=== PATIENT | female | born 1960 | race Caucasian/White ===

== ENCOUNTER 2023-07-11 10:27 | Day surgery (SDC) | payer MEDICARE, SELFPAY ==
[2023-07-11 11:41] VITALS: BP 127/78; PULSE 84; RESP 16; TEMP 36.1; O2SAT 98
--- NOTE | 2023-07-11 12:00 | W.ANESPRE ---
General Info Date of Service Date Performed: 07/11/23 Height: 5 ft 9 in Weight: 90.718 kg Body Mass Index (BMI): 29.5 Surgical Procedure: Operation Date: 07/11/23 12:55 Proposed Procedure Side Surgeon p Cataract Extraction with IOL Implant Left John Thomas MD Meds Allergies and Home Medications Allergies Allergy/AdvReac Type Severity Reaction Status Date / Time No Known Allergies Allergy Unverified 07/09/23 11:56 Home Medication Medication Instructions Recorded albuterol sulfate 90 mcg/actuation 1 - 2 inh inhalation DIRECTED 06/25/23 aerosol inhaler alprazolam 0.5 mg tablet 0.5 mg PO DAILY 06/25/23 famotidine 20 mg tablet 20 mg PO DAILY PRN 06/25/23 fluticasone furoate 100 1 ea inhalation BID 06/25/23 mcg-vilanterol 25 mcg/dose inhalation powder (Breo Ellipta) folic acid 1 mg tablet 1 mg PO BID 06/25/23 furosemide 20 mg tablet 20 mg PO DAILY 06/25/23 furosemide 40 mg tablet 40 mg PO DAILY 06/25/23 levalbuterol HCl 0.63 mg/3 mL 0.63 mg inhalation DIRECTED 06/25/23 solution for nebulization multivitamin 1 tab PO DAILY 06/25/23 ondansetron 4 mg disintegrating 4 mg PO Q8H PRN 06/25/23 tablet prednisone 20 mg tablet 40 mg PO DAILY 06/25/23 pregabalin 200 mg capsule 200 - 400 mg PO DIRECTED 06/25/23 spironolactone 100 mg tablet 100 mg PO DAILY 06/25/23 thiamine HCl (vitamin B1) 100 mg 100 mg PO DAILY 06/25/23 tablet Current Visit Medications: Current Medications Generic Name Dose Route Start Last Admin Trade Name Freq PRN Reason Stop Dose Admin Acetaminophen 1,000 mg 07/11/23 06:00 Acetaminophen 500 Mg Tab PO 08/10/23 05:59 Q4H PRN PRN Balanced Salt Solution 500 ml 07/11/23 06:00 Balanced Salt Soln.-Plus 500 Ml Bag OP 08/10/23 05:59 DIRECTED [facility] Miscellaneous Medication 0 ml 07/11/23 06:00 Prednisolone 1%, Moxifloxacin 0.5%, Nepafenac 0.1% 5ml Btl OS 08/10/23 05:59 DIRECTED [facility] Miscellaneous Medication 0 ml 07/11/23 06:00 Tropicam./Phenyleph. (1/2.5%) 5 Ml Btl OS 08/10/23 05:59 DIRECTED [facility] Tetracaine HCl 0 ml 07/11/23 06:00 Tetracaine 0.5% 4 Ml Btl OS 08/10/23 05:59 DIRECTED [facility] PFSH Active Problems Active Problems: Problem Status Onset Code Nuclear age-related cataract, right eye H25.11 Cortical age-related cataract, right eye H25.011 Medical History Medical History (Updated 07/09/23 @ 11:54 by Stevenson Singh) ADHD Allergic rhinitis Anxiety disorder Asthma Chronic pain due to injury Chronic post-traumatic stress disorder (PTSD) COPD (chronic obstructive pulmonary disease) 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 states medical marijuana Vital Signs and Lab Results Vital Signs Most Recent Vital Signs in EMR: Most Recent Vital Signs Temp Pulse Resp BP Pulse Ox 36.1 C L 84 16 127/78 98 07/11/23 11:41 07/11/23 11:41 07/11/23 11:41 07/11/23 11:41 07/11/23 11:41 Lab Results Blood Type / Crossmatch: No Data to Display Complete Blood Count: No Data to Display Complete Metabolic Panel: No Data to Display Liver Function Panel: No Data to Display Coagulation Panel: No Data to Display Cardiac Panel: No Data to Display Arterial Blood Gas: No Data to Display Venous Blood Gas: No Data to Display Pancreas Panel: No Data to Display Thyroid Panel: No Data to Display Infectious Disease: No Data to Display Blood Cultures: No Data to Display Toxicology Panel: No Data to Display Anesthesia Assessment and Plan Anesthesia History Personal History: No History of Anesthesia Complications Family History: No Family History of Anesthesia Complications Exercise Tolerance Exercise Tolerance: Metabolic Equivalents>4 Pertinent Negatives Pertinent Negatives: No Symptoms of GERD (controlled with meds) Cardiac & Pulmonary Exam Cardiac Exam: Normal S1/S2 Heart Sounds Pulmonary Exam: Clear Bilateral Breath Sounds Implantable Cardiac Device Does patient have a Pacemaker or an ICD?: No Airway Exam Known Difficult Airway: No Mallampati Class: 2 Mouth Opening: Normal (> 3cm) Thyromental Distance: Greater than 3 cm Neck Range of Motion: Full ROM Neck Circumference: Normal Teeth Condition: Generalized Poor Dentition ASA Classification ASA Score: ASA 2 Emergency Case?: No NPO Status NPO Status: NPO Clears >2 hours, Solids >8 hours Anesthesia Plan Resuscitation Status: Full Code Anesthesia Technique: MAC Anesthesia Airway Planned: Natural Airway Monitors Used: Standard Monitors Preoperative Comments:: Smokes Marijuana for medical reasons. Reports smoked this morning for anti anxiety reasons. Affect slightly off. Will not give MKO. Pt understands and feels will do ok.
[2023-07-11 12:12] VITALS: BMI 29.5
[2023-07-11] MEDS: Tropicam./Phenyleph. (1/2.5%) 5 ML BTL OS ×3 (12:17→12:33)
[2023-07-11] MEDS: Balanced Salt Soln.-PLUS 500 ML BAG OP (13:07)
[2023-07-11] MEDS: Tetracaine 0.5% 4 ML BTL OS (13:08)
[2023-07-11] MEDS: Lidocaine 1% Pres-Free 5 ML VIAL (13:09)
[2023-07-11] MEDS: Phenylephrine/Lidocaine (15/10) MG/ML 1 ML VIAL (13:10)
[2023-07-11] MEDS: Povidone-Iodine Ophth 30 ML BTL (13:10)
[2023-07-11] MEDS: Duovisc Viscoelastic System EACH 1 EACH (13:11)
[2023-07-11 13:29] VITALS: BP 115/71; PULSE 78; RESP 16; TEMP 36.4; O2SAT 99
--- NOTE | 2023-07-11 13:29 | W.PM.DSUDISC ---
Date of service: 07/11/23 Time of Service: 13:29 Discharge Plan Disposition Patient Disposition: Home Discharge Details Attending Provider: John Thomas Primary Care Provider: Michael Rainey [place] Meds and New Rx's Prescriptions: No Action furosemide 40 mg Tablet 40 mg PO DAILY levalbuterol HCl 0.63 mg/3 mL Solution For Nebulization 0.63 mg INHALATION DIRECTED prednisone 20 mg Tablet 40 mg PO DAILY spironolactone 100 mg Tablet 100 mg PO DAILY thiamine HCl (vitamin B1) 100 mg Tablet 100 mg PO DAILY alprazolam 0.5 mg Tablet 0.5 mg PO DAILY famotidine 20 mg Tablet 20 mg PO DAILY PRN folic acid 1 mg Tablet 1 mg PO BID furosemide 20 mg Tablet 20 mg PO DAILY albuterol sulfate 90 mcg/actuation Hfa Aerosol Inhaler 1 - 2 inh INHALATION DIRECTED ondansetron 4 mg Tablet,Disintegrating 4 mg PO Q8H PRN pregabalin 200 mg Capsule 200 - 400 mg PO DIRECTED fluticasone furoate-vilanterol [Breo Ellipta] 100-25 mcg/dose Blister With Device 1 ea INHALATION BID multivitamin Tablet 1 tab PO DAILY Discharge Instructions Stand Alone Forms: Post-op Topical Cataract, Flaquito Cruz (DSU) Discharge Orders Discharge Orders: Discharge Order (Routine); Ordered 07/11/23 Ordered By: John Thomas DS: Diagnosis Discharge Diagnosis (1) Nuclear age-related cataract, right eye: Status: Resolved (2) Cortical age-related cataract, right eye: Status: Resolved
--- NOTE | 2023-07-11 13:30 | ROE_ITS ---
Date of service: 07/11/23 Time of Service: 13:30 Operative Note Operative Note DATE OF PROCEDURE: 07/11/23 PRE-OP DIAGNOSIS: Nuclear/cortical cataract, right eye POST-OP DIAGNOSIS: same PROCEDURE: Cataract extraction using phacoemulsification with intraocular lens implant, right eye SURGEON: John Thomas ANESTHESIA TYPE: Local By Surgeon and MAC Refer to Anesthesia Record ESTIMATED BLOOD LOSS: 0 PATHOLOGY: none sent COMPLICATIONS: None Patient was transported to: same day Patient's condition: stable Implants: Jermain Clareon [id number] Indications: Progressive decreased vision due to cataract, right eye Procedure Description: CATARACT SURGERY OPERATIVE REPORT PREOPERATIVE DIAGNOSIS: Nuclear/cortical cataract, right eye POSTOPERATIVE DIAGNOSIS: Same OPERATION: Cataract extraction using phacoemulsification with posterior chamber intraocular lens implant, right eye. IOL: IOL Associate Chief Nurse/Model: Jermain Clareon [id number] IOL Power: + 24.5 diopters IOL Serial Number: [id number] Optic Diameter: 6.0mm Haptic/Overall Diameter: 13.0mm PHACO INFO: JermainMeddleurion Vision System with OZil and Active Fluidics Cumulative Dispersed Energy (CDE): 6.00 seconds SURGEON: John Thomas MD, CYDNEY ANESTHESIA: Monitored Anesthesia Care (MAC), with local sub-tenon's anesthetic infiltration COMPLICATIONS: None SPECIMENS: None INDICATIONS FOR PROCEDURE: The patient is a 63-year-old lady with history of diminished visual acuity in her right eye secondary to the development of nuclear/cortical cataract. She is significantly symptomatic that she desires cataract surgery and attempt to improve and maximize her vision. See office notes for detailed information. PROCEDURE: The correct surgical eye was identified and marked as the right eye and the pupil was dilated in the preoperative area using mydriatics and cycloplegics. The dilated pupil size was 5.0 mm. The patient elected to proceed without oral sedation. The patient was brought to the operating room where cardiopulmonary monitoring was instituted and surgical time-out was performed, confirming the correct operative eye and IOL power. Topical anesthesia was administered and ophthalmic povidone-iodine 5% was instilled into the conjunctival fornices. The shanita-ocular area was prepped with Betadine 10% solution and draped in the usual sterile fashion for intraocular surgery, including an aperture drape. A Tegaderm transparent film dressing was cut in half and used to cover the lashes and lid margins. Care was taken to sequester the lashes and lid margins under the Tegaderm dressing. A lid speculum was placed between the lids of the operative eye and the Constantine-Trell operating microscope was maneuvered into position. Carloz scissors were then used to make a conjunctival buttonhole approximately 6mm posterior to the limbus in the inferonasal quadrant. Blunt dissection was carried out to expose bare sclera, and a blunt-tipped sub-tenon?s anesthesia cannula was introduced and passed posteriorly along the globe where non- preserved plain lidocaine was injected into posterior sub-Tenon?s space. A sideport knife was used to make a paracentesis port. Intraocular phenylephrine/lidocaine was injected into the anterior chamber. The anterior chamber was then filled with viscoelastic. A keratome knife was used to construct a two--plane clear corneal tunnel extending 2.0mm into clear cornea. A flap was raised on the anterior capsule and capsulorhexis forceps were used to complete a continuous curvilinear capsulorhexis of 5.0 mm. Balanced salt solution was then used to perform cortical cleaving hydrodissect ion and nuclear hydrodelineation until the lens could be freely rotated within the capsular bag. The lens nucleus was then disassembled and removed within the capsular bag and iris plane using phacoemulsification. Residual cortical material was removed using the I/A handpiece. The posterior capsule was carefully polished to remove as much residual lens epithelial cells as safely possible. The capsular bag was then inflated and the anterior chamber deepened with cohesive viscoelastic. The lens implant described above was inserted into the capsular bag using the Jermain Autonome Injector. A Kuglen hook was used to dial the IOL into position. Residual viscoelastic was then removed first from posterior to the IOL, then from the anterior chamber using the I/A handpiece. The lens implant was noted to center nicely within the capsular bag. The incisions were stromally hydrated, and the anterior chamber was reformed using BSS. Then 0.5cc of moxifloxacin 1.0mg/ml were injected into the capsular bag and anterior chamber. The incisions were checked with a Weck spear and found to be secure. Several drops of ophthalmic povidone-iodine 5% were then applied to the eye followed by two drops of Imprimis combination prednisolone/moxifloxacin/nepafenac solution. The apes were removed and a clear plastic protective eye shield was placed over the eye. The patient was then returned to [facility] Day Surgery in stable condition.
--- NOTE | 2023-07-11 14:07 | W.ANESPOSTOP ---
Postoperative Evaluation Date, Time and Location Date Performed: 07/11/23 Time Performed: 13:30 Patient Location: Day Surgery Unit Vital Signs Most Recent Imported Vital Signs: Most Recent Vital Signs Temp Pulse Resp BP Pulse Ox 36.4 C L 78 16 115/71 99 07/11/23 13:29 07/11/23 13:29 07/11/23 13:29 07/11/23 13:29 07/11/23 13:29 Pain Score Most Recent Pain Score: Most Recent Pain Score Pain Level 0 07/11/23 13:29 Assessment Mental Status: Awake (Alert & Oriented to Patient Baseline) Airway and Respiratory Function: Patent airway with normal (patient baseline) respiratory exam Cardiovascular Function: Hemodynamically Stable Hydration Status: Adequately Hydrated Nausea & Vomiting: No Nausea or Vomiting Pain: Pt. Denies Any Pain Peripheral Nerve Block: Patient did not receive a nerve block
== END 2023-07-11 15:51 | disposition home or self-care (01) ==
PROVIDERS: PCP Internal Medicine; Visit Provider Ophthalmology
PROC: (CPT 66984; principal; 2023-07-11 12:45)
DX: H25.11 Age-related nuclear cataract, right eye (principal); H25.011 Cortical age-related cataract, right eye
CPT/HCPCS: 66984; V2632

== ENCOUNTER 2025-09-12 03:15 | Outpatient (RCR) | payer MEDICARE, MEDICAID, SELFPAY ==
[2025-09-05 08:00] LABS: Abs Immature Grans 0.01 10^3/uL (0.0-0.06); HCT 33.4 % (36.0-46.0); HGB 11.0 g/dL (11.2-15.7); Immature Grans % 0.2 %; MCH 27.4 pg (27.0-33.0); MCHC 32.9 % (32.0-36.0); MCV 83 fL (80-95); MPV 9.9 fL (8.0-11.0); Platelet Count 127 10^3/uL (130-400); RBC 4.01 10^6/uL (3.93-5.22); RDW 13.3 % (11.7-14.6); RDW-SD 40.7 fL; WBC 5.45 10^3/uL (4.4-10.8)
[2025-09-05 08:18] LABS: ALT 14 U/L (10-49); AST 21 U/L (<34); Albumin 4.1 g/dL (3.4-5.0); Alkaline Phosphatase 120 U/L (46-116); Anion Gap 8.5 mmol/L (3-11); BUN 14 mg/dL (9-23); Bilirubin, Total 0.50 mg/dL (0.2-1.2); CO2 26.5 mmol/L (20.0-31.0); Calcium 9.1 mg/dL (8.3-10.6); Chloride 106 mmol/L (98-107); Glucose 91 mg/dL (74-106); Magnesium 1.6 mg/dL (1.6-2.6); Potassium 3.8 mmol/L (3.5-5.1); Sodium 141 mmol/L (136-145); Total Protein 7.2 g/dL (5.7-8.2)
[2025-09-05] MEDS: Normal Saline Flush 10 ML SYR IVP (08:33)
[2025-09-12] MEDS: Normal Saline Flush 10 ML SYR IVP (09:06)
[2025-09-12 09:15] LABS: Abs Immature Grans 0.03 10^3/uL (0.0-0.06); HCT 33.6 % (36.0-46.0); HGB 11.5 g/dL (11.2-15.7); Immature Grans % 0.4 %; MCH 27.4 pg (27.0-33.0); MCHC 34.2 % (32.0-36.0); MCV 80 fL (80-95); MPV 9.9 fL (8.0-11.0); Platelet Count 131 10^3/uL (130-400); RBC 4.20 10^6/uL (3.93-5.22); RDW 13.5 % (11.7-14.6); RDW-SD 39.1 fL; WBC 7.30 10^3/uL (4.4-10.8)
[2025-09-12 09:40] LABS: ALT 25 U/L (10-49); AST 19 U/L (<34); Albumin 4.3 g/dL (3.4-5.0); Alkaline Phosphatase 128 U/L (46-116); Anion Gap 6.3 mmol/L (3-11); BUN 36 mg/dL (9-23); Bilirubin, Total 0.60 mg/dL (0.2-1.2); CO2 23.7 mmol/L (20.0-31.0); Calcium 8.7 mg/dL (8.3-10.6); Chloride 105 mmol/L (98-107); Glucose 92 mg/dL (74-106); Magnesium 1.8 mg/dL (1.6-2.6); Potassium 3.3 mmol/L (3.5-5.1); Sodium 135 mmol/L (136-145); Total Protein 7.2 g/dL (5.7-8.2)
== END 2025-09-18 23:59 | disposition home or self-care (01) ==
LOC: INF 03:15
PROVIDERS: PCP Internal Medicine; Visit Provider Internal Medicine Hematology
DX: C79.89 Secondary malignant neoplasm of other specified sites (principal); Z45.2 Encounter for adjustment and management of vascular access device
CPT/HCPCS: 36591; 80053; 83735; 85025

== ENCOUNTER 2025-09-27 14:03 | Outpatient (REF) | payer MEDICARE, MEDICAID, SELFPAY ==
[2025-09-27 14:13] LABS: Abs Immature Grans 0.04 10^3/uL (0.0-0.06); HCT 31.1 % (36.0-46.0); HGB 10.6 g/dL (11.2-15.7); Immature Grans % 0.5 %; MCH 27.5 pg (27.0-33.0); MCHC 34.1 % (32.0-36.0); MCV 81 fL (80-95); MPV 10.4 fL (8.0-11.0); Platelet Count 150 10^3/uL (130-400); RBC 3.86 10^6/uL (3.93-5.22); RDW 13.8 % (11.7-14.6); RDW-SD 39.8 fL; WBC 8.01 10^3/uL (4.4-10.8)
[2025-09-27 14:37] LABS: Magnesium 1.8 mg/dL (1.6-2.6)
[2025-09-27 14:39] LABS: ALT 26 U/L (10-49); AST 22 U/L (<34); Albumin 4.3 g/dL (3.2-5.0); Alkaline Phosphatase 117 U/L (46-116); Anion Gap 12.1 mmol/L (3-11); BUN 37 mg/dL (9-23); Bilirubin, Total 0.7 mg/dL (0.2-1.2); CO2 24.9 mmol/L (20.0-31.0); Calcium 9.4 mg/dL (8.3-10.6); Chloride 100 mmol/L (98-107); Glucose 122 mg/dL (74-106); Potassium 3.8 mmol/L (3.5-5.1); Sodium 137 mmol/L (136-145); Total Protein 7.3 g/dL (5.7-8.2)
== END 2025-09-27 14:04 | disposition home or self-care (01) ==
LOC: LBN 14:03
PROVIDERS: PCP Internal Medicine; Visit Provider Internal Medicine Hematology
DX: C79.89 Secondary malignant neoplasm of other specified sites (principal)
CPT/HCPCS: 80053; 83735; 85025

== ENCOUNTER 2025-09-28 15:57 | Inpatient (IN) | payer MEDICARE, MEDICAID, SELFPAY ==
[2025-09-28] VITALS (61 sets, daily range): BP systolic 132–174; BP diastolic 53–88; PULSE 110–147; RESP 16–33; TEMP 36.3–37.8; O2SAT 95–100
--- NOTE | 2025-09-28 16:00 | DI.RAD_ITS ---
Exam(s) XR PORTABLE CHEST AP EXAM: XR PORTABLE CHEST AP CLINICAL HISTORY: sob TECHNIQUE: 2D digital imaging was performed. COMPARISON: No exams were available for comparison FINDINGS: Overlying monitoring leads. Port over right chest with tip at cavoatrial junction. LUNGS: Clear. No pleural abnormality seen. HEART: Normal size. AORTA: Normal diameter. BONES: Unremarkable for age. Soft tissues: Unremarkable. IMPRESSION: No acute findings. DATA REPOSITORY: RADIATION DOSE DELIVERED:
[2025-09-28 16:35] LABS: Abs Immature Grans 0.01 10^3/uL (0.0-0.06); BE (Venous) 2 mmol/L (-2-3); HCO3 (Venous) 26 mmol/L (23-28); HCT 28.4 % (36.0-46.0); HGB 9.7 g/dL (11.2-15.7); Immature Grans % 0.2 %; MCH 27.6 pg (27.0-33.0); MCHC 34.2 % (32.0-36.0); MCV 81 fL (80-95); MPV 8.8 fL (8.0-11.0); O2 Sat (Venous) 82 %; Platelet Count 120 10^3/uL (130-400); RBC 3.52 10^6/uL (3.93-5.22); RDW 14.0 % (11.7-14.6); RDW-SD 40.2 fL; TCO2 (Venous) 24 mmol/L (24-29); WBC 6.07 10^3/uL (4.4-10.8); pCO2 (Venous) 37 mmHg (41-51); pO2 (Venous) 43 mmHg
--- NOTE | 2025-09-28 16:38 | W.ED.GENAD ---
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, Normocytic anemia, Acute dehydration, Elevated BUN, DNI (do not intubate) Primary Care Provider: Michael Rainey ED Provider: Michael Molina Home Meds and New Rx's Prescriptions: No Action oxycodone 5 mg tablet 5 mg feeding tube Q6H PRN Patient Comments: TAKE 1 TABLET BY MOUTH EVERY 6 HOURS NEEDED FOR PAIN prochlorperazine maleate 10 mg tablet 10 mg feeding tube Q6H PRN Patient Comments: TAKE 1 TABLET BY MOUTH EVERY 6 HOURS NEEDED FOR NAUSEA Certavite-Antioxidant 18-400 mg-mcg tablet 1 tab PO DAILY Patient Comments: TAKE 1 TABLET BY MOUTH EVERY DAY benzonatate 100 mg capsule 100 mg PO TID PRN Patient Comments: TAKE 1 CAPSULE BY MOUTH THREE TIMES DAILY NEEDED FOR COUGH ibuprofen 800 mg tablet 800 mg feeding tube Q8H PRN Patient Comments: TAKE 1 TABLET BY MOUTH EVERY 8 HOURS NEEDED FOR PAIN estradiol 0.1 mg/24 hr patch weekly 1 patch transdermal .weekly Patient Comments: APPLY 1 PATCH ON THE SKIN EVERY WEEK levalbuterol HCl 0.63 mg/3 mL Solution For Nebulization 0.63 mg INHALATION DIRECTED alprazolam 0.5 mg Tablet 0.5 mg PO DAILY famotidine 20 mg Tablet 20 mg PO DAILY PRN albuterol sulfate 90 mcg/actuation Hfa Aerosol Inhaler 1 - 2 inh INHALATION DIRECTED fluticasone furoate-vilanterol [Breo Ellipta] 100-25 mcg/dose Blister With Device 1 ea INHALATION BID multivitamin Tablet 1 tab PO DAILY HPI General Date/Time Provider Initiated Documentation: 09/28/25 16:01. HPI Narrative: MDM This is a tachycardic afebrile 65-year-old patient with metastatic squamous cell carcinoma of head and neck and decreased oral intake with goals to avoid escalation of care for which patient will benefit from local hospitalization. Patient had recently been diagnosed with mucositis. No active oral bleeding to suggest benefit from nebulized TXA at this point. I have a type and screen on file. Patient will receive empiric coverage for sepsis with cefepime and vancomycin. When asked about intubation patient shook her head and declined. I was able to assess patient's orientation as patient was able to write her name, the date, and furthermore patient has had prior DNI DNR orders in the [facility] EMR the place, back in July. Oncology notes that there is consideration of engaging palliative care. I was able to speak with the patient's partner named Charis Goodman at [phone]. She agreed that the patient would not want escalation of care nor intubation nor tertiary care transfer nor central venous catheter. Patient has good access with a right chest wall port in place. I also spoke to the patient's mother Allyn Otero at [phone] and the patient's daughter Roseann Otero at [phone] letting them both know that the patient was going to be admitted to the hospital. Patient is comfortable at the moment. She is handling her secretions. CBC shows slightly worsened normocytic anemia with new thrombocytopenia. No leukocytosis. Normal reassuring magnesium. Initial reassuring troponin. Comprehensive metabolic panel showing CKD from last month but improved today with creatinine of 1.13. No LFT abnormalities. Elevated BUN. Patient has quite dry mucous membranes. Her delta troponin was flat. Given reported diarrhea I ordered a C. difficile. She has a normal reassuring lactate. I considered PE however the patient is not endorsing shortness of breath and is not hypoxic. I did not feel that the patient would benefit from anticoagulation in the event that she did have a PE. As result did not perform a CT angiogram of her chest. 8:09 PM Patient's tachycardia is improving. She still appears quite dry so we will order her an additional 500 cc of fluid for a total of 2 L. She tells me that she is not on any beta-blockade. She tells me that she is not having any pain at the moment. She does take oxycodone 5 mg per her feeding tube Q6. In the event that there is a component of pain will treat with low-dose morphine. I was in touch with Dr. Enciso who graciously agreed to accept patient for hospitalization. I signed patient out to Dr. Enciso at bedside. I reviewed this patient's CODE STATUS in the [facility] EMR. There are 2 CODE STATUS entries both from July 2025. First on August 03 there is a DNI DNR order placed by a PA named Shu Johnson on August 03. It appears that Shu Johnson is a PA with the radiology department. On August 02 patient had had G-tube placed and venous access placed. Patient was intubated on October 02 and anesthesia noted challenging intubation due to friable mass. There is a note on October 02 from eLila Johnson. It is a brief H&P. There is subsequently a full code order placed on August 18 by Blas Eugene a resident in the ENT department. Patient was at [facility] for extraction of multiple teeth on 08/17/2025. 9:18 PM Patient developed worsening tachycardic. Rate climbed up into the 130s. Her blood pressure also increased into the 160s. She does not have outpatient alprazolam on her medication list. I offered her anxiolysis which she declined. She had no bleeding from her oral mucosa on reexamination. She was handling her secretions and in no acute distress. HPI Nonverbal 65-year-old female with advanced squamous cell head and neck cancer arriving via EMS with reported oral bleeding. Patient is nonparticipatory in history gathering. Patient reports she would not want intubation or CPR. She would not want transfer to tertiary care. She squamous cell carcinoma of the right tonsil, and the base of the tongue. She has a history of lung disease asthma COPD cirrhosis and a history of hepatic encephalopathy. She had previously been maintained on cisplatin. On September 19 she was diagnosed with progressive mucositis grade 3 over the soft palate. She received cisplatin on 09 19. She was seen in oncology on 09/21 and noted that she had no solids by mouth limited by dysphagia and pain. She has been drinking liquids. She has been using her G-tube 3 times a day. She reportedly has had depression. She was down to 80 kg from 85 kg. She met with social work on 09/22. At that point she was questioning if she should continue with treatment. She reported feeling that she had no dignity left in her life. Patient was agreeable at that point in time to palliative care referral. She also brought up Medicaid aid in dying. Exam General: Cachectic [id number] in no acute distress speaking. Nonverbal. Head: Normocephalic, atraumatic. Eye: Extraocular eye movements intact. No conjunctival injection. Mild just scleral icterus. Ear, nose, mouth, throat: handling secretions normally. Posterior oropharynx with significant dried blood. No active bleeding. Quite dry mucous membranes. Neck: Trachea midline. Cardiovascular: Well-perfused distal extremities. Rapid regular rate. Chest wall: Chest wall port in place. Respiratory: Nonlabored respiration. Clear lungs bilaterally. Gastrointestinal: Nondistended abdomen. Soft nontender. 16 [place] left upper quadrant feeding tube. Musculoskeletal: No edema. Moving all 4 extremities spontaneously. Skin: Normal for age and race, grossly normal temperature and turgor. No acute rash. Neurologic: Alert to person place time and events. Neurological status ascertained by having patient write responses on a piece of paper. Related Data Home Medications ?Medication ?Instructions ?Recorded ?Confirmed albuterol sulfate 90 mcg/actuation 1 - 2 inh inhalation DIRECTED 06/25/23 09/28/25 aerosol inhaler alprazolam 0.5 mg tablet 0.5 mg PO DAILY 06/25/23 09/28/25 famotidine 20 mg tablet 20 mg PO DAILY PRN 06/25/23 09/28/25 fluticasone furoate 100 1 ea inhalation BID 06/25/23 09/28/25 mcg-vilanterol 25 mcg/dose inhalation powder (Breo Ellipta) levalbuterol HCl 0.63 mg/3 mL 0.63 mg inhalation DIRECTED 06/25/23 09/28/25 solution for nebulization multivitamin 1 tab PO DAILY 06/25/23 09/28/25 benzonatate 100 mg capsule 100 mg PO TID PRN 09/28/25 09/28/25 estradiol 0.1 mg/24 hr weekly 1 patch transdermal .weekly 09/28/25 09/28/25 transdermal patch ibuprofen 800 mg tablet 800 mg feeding tube Q8H PRN 09/28/25 09/28/25 multivitamin-ferrous 1 tab PO DAILY 09/28/25 09/28/25 fumarate-folic acid 18 mg-400 mcg tablet (Certavite-Antioxidant) oxycodone 5 mg tablet 5 mg feeding tube Q6H PRN 09/28/25 09/28/25 prochlorperazine maleate 10 mg 10 mg feeding tube Q6H PRN 09/28/25 09/28/25 tablet Allergies Allergy/AdvReac Type Severity Reaction Status Date / Time No Known Allergies Allergy Verified 09/28/25 17:08 General Stated Complaint: AMS/LOC JOVANA: 2 Course Vital Signs Vital signs: Vital Signs Temperature 36.3 C L 09/28/25 16:03 Pulse 128 H 09/28/25 16:03 Respiratory Rate 31 H 09/28/25 16:03 Blood Pressure 149/81 H 09/28/25 16:03 Pulse Oximetry 98 09/28/25 16:03 Temperature 36.3 C L 09/28/25 16:03 Temperature Source Tympanic 09/28/25 16:03 Pulse 128 H 09/28/25 16:03 Respiratory Rate 26 H 09/28/25 16:33 Respiratory Effort Normal, Non-Labored 09/28/25 16:33 Respiratory Depth Normal 09/28/25 16:33 Respiratory Pattern Normal 09/28/25 16:33 Blood Pressure 149/81 H 09/28/25 16:03 Blood Pressure Position Sitting 09/28/25 16:03 Pulse Oximetry 98 09/28/25 16:03 Oxygen Delivery Method Room Air 09/28/25 16:03 Oxygen Flow Rate 0 09/28/25 16:03 Lab/Test Results Lab/Test Results: Laboratory Tests Range/Units 09/28/25 16:23 WBC (4.4-10.8) 10^3/uL 6.07 RBC (3.93-5.22) 10^6/uL 3.52 L Hgb (11.2-15.7) g/dL 9.7 L Hct (36.0-46.0) % 28.4 L MCV (80-95) fL 81 MCH (27.0-33.0) pg 27.6 MCHC (32.0-36.0) % 34.2 RDW (11.7-14.6) % 14.0 Plt Count (130-400) 10^3/uL 120 L MPV (8.0-11.0) fL 8.8 Immature Gran % % 0.2 Neutrophils % % 72.5 Lymphocytes % % 12.0 Monocytes % % 14.5 Eosinophils % % 0.3 Basophils % % 0.5 Nucleated RBC % (0.0-0.3) % 0.0 Absolute Neutrophils (1.2-6.7) 10^3/uL 4.40 Absolute Lymphocytes (1.2-3.4) 10^3/uL 0.73 L Absolute Monocytes (0.1-0.8) 10^3/uL 0.88 H Absolute Eosinophils (0.0-0.7) 10^3/uL 0.02 Absolute Basophils (0.0-0.2) 10^3/uL 0.03 VBG pH (7.31-7.41) 7.45 H VBG pCO2 (41-51) mmHg 37 L VBG pO2 mmHg 43 VBG HCO3 (23-28) mmol/L 26 VBG Total CO2 (24-29) mmol/L 24 VBG O2 Saturation % 82 VBG Base Excess (-2-3) mmol/L 2 VBG Lactate (<or=2.0) mmol/L 0.9 PFSH All Active Problems (Updated 09/28/25 @ 21:28 by Michael Molina MD) DNI (do not intubate) (Acute) Elevated BUN (Acute) Acute dehydration (Acute) Normocytic anemia (Acute) 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 (Acute) Medical History (Updated 09/28/25 @ 21:28 by Michael Molina MD) History of alcohol abuse Chronic post-traumatic stress disorder (PTSD) COPD (chronic obstructive pulmonary disease) Idiopathic progressive polyneuropathy Obesity 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 states medical marijuana Housing: house Do you feel safe at home: Yes Do you feel safe in your relationship?: Yes
[2025-09-28] MEDS: CEFEPIME 2 GM in Normal Saline 100 ML IVPB (16:50)
[2025-09-28] MEDS: Normal Saline 1,000 ML 1000 ML IV (16:50)
[2025-09-28] MEDS: VANCOMYCIN/WATER (PEG) 1.75 GM/350 ML BAG IVPB (16:50)
[2025-09-28 17:03] LABS: Magnesium 1.8 mg/dL (1.6-2.6); Troponin I 4 ng/L (<35)
[2025-09-28 17:07] LABS: ALT 24 U/L (10-49); AST 20 U/L (<34); Albumin 4.0 g/dL (3.2-5.0); Alkaline Phosphatase 106 U/L (46-116); Anion Gap 10.6 mmol/L (3-11); BUN 39 mg/dL (9-23); Bilirubin, Total 0.4 mg/dL (0.2-1.2); CO2 24.4 mmol/L (20.0-31.0); Calcium 9.0 mg/dL (8.3-10.6); Chloride 104 mmol/L (98-107); Glucose 106 mg/dL (74-106); Potassium 3.6 mmol/L (3.5-5.1); Sodium 139 mmol/L (136-145); Total Protein 6.9 g/dL (5.7-8.2)
[2025-09-28] MEDS: Normal Saline 500 ML IV ×2 (17:52→19:48)
[2025-09-28 18:23] LABS: Troponin I 4 ng/L (<35)
[2025-09-28 18:44] LABS: COVID-19 PCR Negative (Negative); RSV PCR Negative (Negative)
[2025-09-28] MEDS: MORPHine 10 MG/ML VIAL 2 MG IVP ×2 (20:15→20:41)
--- NOTE | 2025-09-28 20:42 | W.PM.HP.N ---
Date of service: 09/28/25 Time of Service: 20:30 Assessment and Plan Assessment and plan (1) Acute dehydration: Status: Acute Assessment and plan: Patient appears dry, BUN elevated 2L NS given in ED Pending tube feed details, will give D5LR @ 75 ml/hr Requested nutrition consult Will not continue antibiotics. No cultures pending. 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 Patient has squamous cell carcinoma of the head and neck, has a PEG tube, is unable to swallow and unable to speak. September 19 diagnosis of mucositis on the soft palate. Patient minimally participating in interview, slight head movements to answer yes/no. She is able to write with a pen but says no when asked if she wants to. Per [facility] oncology nurse note from clinic visit today, patient appeared to be more ill-appearing than usual and had reduced nutrition due to deferred tube feeds. She confirms DNR/DNI status per previous conversation with ED physician. Patient says her partner Charis (same name) will not visit [facility] but may come tomorrow. Patient confirms she feels very ill but denies pain. No chest pain, no SOB, no abdominal pain, no N/V/D. In the ED she was tachycardic HR 128, tachypneic RR 31, hypertensive BP 149/81. On room air. CXR shows chest portacath, no acute findings. Mild anemia H&H 9.7/28.4, low platelets 120. Mild CORI Cr 1.13, elevated BUN 39. No cultures sent. She was given cefepime, vancomycin, morphine and IV fluids. 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 states medical marijuana Housing: house Do you feel safe at home: Yes Do you feel safe in your relationship?: Yes Meds Allergies and Home Medications Allergies Allergy/AdvReac Type Severity Reaction Status Date / Time No Known Allergies Allergy Verified 09/28/25 17:08 Home Medications ?Medication ?Instructions ?Recorded ?Confirmed ?Type albuterol sulfate 90 mcg/actuation 1 - 2 inh inhalation DIRECTED 06/25/23 09/28/25 History aerosol inhaler alprazolam 0.5 mg tablet 0.5 mg PO DAILY 06/25/23 09/28/25 History famotidine 20 mg tablet 20 mg PO DAILY PRN 06/25/23 09/28/25 History fluticasone furoate 100 1 ea inhalation BID 06/25/23 09/28/25 History mcg-vilanterol 25 mcg/dose inhalation powder (Breo Ellipta) levalbuterol HCl 0.63 mg/3 mL 0.63 mg inhalation DIRECTED 06/25/23 09/28/25 History solution for nebulization multivitamin 1 tab PO DAILY 06/25/23 09/28/25 History benzonatate 100 mg capsule 100 mg PO TID PRN 09/28/25 09/28/25 History estradiol 0.1 mg/24 hr weekly 1 patch transdermal .weekly 09/28/25 09/28/25 History transdermal patch ibuprofen 800 mg tablet 800 mg feeding tube Q8H PRN 09/28/25 09/28/25 History multivitamin-ferrous 1 tab PO DAILY 09/28/25 09/28/25 History fumarate-folic acid 18 mg-400 mcg tablet (Certavite-Antioxidant) oxycodone 5 mg tablet 5 mg feeding tube Q6H PRN 09/28/25 09/28/25 History prochlorperazine maleate 10 mg 10 mg feeding tube Q6H PRN 09/28/25 09/28/25 History tablet Exam Narrative Exam Narrative: General: This is a nonverbal, chronically ill-appearing woman in no distress HEENT: Normocephalic, atraumatic. Very dry mucous membranes, Dried blood in back of mouth. CV: Tachycardic. Regular rhythm. Portacath upper chest. Resp: CTAB Abd: soft, NTND MSK: voluntary motion x4 Neuro: awake, alert, minimally interactive Results Labs 09/28/25 16:23 09/28/25 16:23 Labs: Laboratory Results - last 24 hr 09/28/25 09/28/25 09/28/25 16:23 16:48 18:01 WBC 6.07 RBC 3.52 L Hgb 9.7 L Hct 28.4 L MCV 81 MCH 27.6 MCHC 34.2 RDW 14.0 Plt Count 120 L MPV 8.8 Immature Gran % 0.2 Neutrophils % 72.5 Lymphocytes % 12.0 Monocytes % 14.5 Eosinophils % 0.3 Basophils % 0.5 Nucleated RBC % 0.0 Absolute Neutrophils 4.40 Absolute Lymphocytes 0.73 L Absolute Monocytes 0.88 H Absolute Eosinophils 0.02 Absolute Basophils 0.03 VBG pH 7.45 H VBG pCO2 37 L VBG pO2 43 VBG HCO3 26 VBG Total CO2 24 VBG O2 Saturation 82 VBG Base Excess 2 VBG Lactate 0.9 Sodium 139 Potassium 3.6 Chloride 104 Carbon Dioxide 24.4 Anion Gap 10.6 BUN 39 H Creatinine 1.13 H Est GFR (CKD-EPI 2020) 48.59 Glucose 106 Calcium 9.0 Magnesium 1.8 Total Bilirubin 0.4 AST 20 ALT 24 Alkaline Phosphatase 106 Troponin I 4 4 Total Protein 6.9 Albumin 4.0 COVID-19 Source Nasopharynx SARS-CoV-2 (PCR) Negative Influenza Type A (PCR) Negative Influenza Type B (PCR) Negative RSV (PCR) Negative ABO/Rh A Positive Antibody Screen NEGATIVE Last Vital Signs Temp 36.3 C L 09/28/25 16:03 Pulse 128 H 09/28/25 20:31 Resp 26 H 09/28/25 20:31 BP 171/75 H 09/28/25 20:31 Pulse Ox 98 09/28/25 20:31 VTE Prohylaxis Risk Level: Moderate/High Risk Contraindications: Active bleed/high bleed risk Prophylaxis: Mechanical Time Spent Time spent with Patient: 40-54 minutes Time was spent: preparing to see the patient(eg.review tests), obtaining and/or reviewing separately otained hiistory, ordering medications,tests, procedures, referring, communicating with other health pet care assistant, indepentently interpreting results, counseling the patient and care coordination
--- NOTE | 2025-09-28 21:30 | W.PC.ACHO ---
Registration Status: REG ER Primary Language: Preferred Language: ED Information & Data Chief Complaint AMS/LOC 09/28/25 16:38 Triage Note cancer pt here with AQMS and 09/28/25 16:03 oral bleeding. 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 Low back pain Chronic pain due to injury Asthma Allergic rhinitis Anxiety disorder Recurrent major depression ADHD (Last Updated 07/11/23 @ 11:35 by Jorden Urbina) History of cholecystectomy Most Recent Vital Signs Temperature 36.3 C L 09/28/25 16:03 Temperature Source Tympanic 09/28/25 16:03 Pulse 145 H 09/28/25 21:20 Pulse 145 H 09/28/25 21:20 Respiratory Rate 21 09/28/25 21:20 Respiratory Effort Normal, Non-Labored 09/28/25 16:33 Respiratory Depth Normal 09/28/25 16:33 Respiratory Pattern Normal 09/28/25 16:33 Blood Pressure 162/73 H 09/28/25 21:15 Blood Pressure Mean 105 09/28/25 21:15 Blood Pressure Position Sitting 09/28/25 16:03 Pulse Oximetry 97 09/28/25 21:20 Oxygen Delivery Method Room Air 09/28/25 16:03 Oxygen Flow Rate 0 09/28/25 16:03 Allergies No Known Allergies Allergy (Verified 09/28/25 17:08) Precautions Isolation Fall precaution 09/28/25 16:31 IV IV Catheter Type [Right] Port-a-cath (double) IV Catheter Gauge [Right] 19 Diet Orders Category Date Time Status Nothing Per Oral [DIET] Nutrition 09/28/25 20:37 Active Diagnostics 09/28/25 09/28/25 09/28/25 Range/Units 18:01 16:48 16:23 WBC 6.07 (4.4-10.8) 10^3/uL RBC 3.52 L (3.93-5.22) 10^6/uL Hgb 9.7 L (11.2-15.7) g/dL Hct 28.4 L (36.0-46.0) % MCV 81 (80-95) fL MCH 27.6 (27.0-33.0) pg MCHC 34.2 (32.0-36.0) % RDW 14.0 (11.7-14.6) % Plt Count 120 L (130-400) 10^3/uL MPV 8.8 (8.0-11.0) fL Immature Gran % 0.2 % Neutrophils % 72.5 % Lymphocytes % 12.0 % Monocytes % 14.5 % Eosinophils % 0.3 % Basophils % 0.5 % Nucleated RBC % 0.0 (0.0-0.3) % Absolute Neutrophils 4.40 (1.2-6.7) 10^3/uL Absolute Lymphocytes 0.73 L (1.2-3.4) 10^3/uL Absolute Monocytes 0.88 H (0.1-0.8) 10^3/uL Absolute Eosinophils 0.02 (0.0-0.7) 10^3/uL Absolute Basophils 0.03 (0.0-0.2) 10^3/uL VBG pH 7.45 H (7.31-7.41) VBG pCO2 37 L (41-51) mmHg VBG pO2 43 mmHg VBG HCO3 26 (23-28) mmol/L VBG Total CO2 24 (24-29) mmol/L VBG O2 Saturation 82 % VBG Base Excess 2 (-2-3) mmol/L VBG Lactate 0.9 (<or=2.0) mmol/L Sodium 139 (136-145) mmol/L Potassium 3.6 (3.5-5.1) mmol/L Chloride 104 (98-107) mmol/L Carbon Dioxide 24.4 (20.0-31.0) mmol/L Anion Gap 10.6 (3-11) mmol/L BUN 39 H (9-23) mg/dL Creatinine 1.13 H (0.55-1.02) mg/dL Est GFR (CKD-EPI 2020) 48.59 (mL/min/1.73m2) Glucose 106 (74-106) mg/dL Calcium 9.0 (8.3-10.6) mg/dL Magnesium 1.8 (1.6-2.6) mg/dL Total Bilirubin 0.4 (0.2-1.2) mg/dL AST 20 (<34) U/L ALT 24 (10-49) U/L Alkaline Phosphatase 106 (46-116) U/L Troponin I 4 4 (<35) ng/L Total Protein 6.9 (5.7-8.2) g/dL Albumin 4.0 (3.2-5.0) g/dL COVID-19 Source Nasopharynx SARS-CoV-2 (PCR) Negative (Negative) Influenza Type A (PCR) Negative (Negative) Influenza Type B (PCR) Negative (Negative) RSV (PCR) Negative (Negative) ABO/Rh A Positive Antibody Screen NEGATIVE [id number] Documentation Fingerstick Glucose Start: 09/28/25 16:08 Freq: Status: Active Protocol: Activity Type Activity Date Activity User E-sign Co-sign Detail Recorded Client Recorded Date Recorded By Document 09/28/25 16:08 LEYDA DAEMON(3) [id number] 09/28/25 16:08 BKG DAEMON(4) Intake and Output - 24 Hour Total 09/28/25 15:55 thru 09/28/25 20:15 Intake Total 2470 Balance 2470 Weight 84.55 kg Intake: IV 2470 Falls Risk Assessment History of Falls Previous History 09/28/25 16:31 Contributing Factors Confusion,Unstable, 09/28/25 16:31 Impairments,Medications Ambulatory Aids Uses ambulatory device + 09/28/25 16:31 Tubes/Lines With any additional score 09/28/25 16:31 Gait Evaluation W/any additional score 09/28/25 16:31 Cognition Cognitive impairment 09/28/25 16:31 Fall Total Score 112 09/28/25 16:31 Level of Risk Maximum Risk 09/28/25 16:31 Problems (Last Updated 07/09/23 @ 11:54 by Stevenson Singh) DNI (do not intubate) (Acute) Elevated BUN (Acute) Acute dehydration (Acute) Normocytic anemia (Acute) 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 (Acute) Attestation Statement: By documenting the first initial, last name, and credentials of the reporting nurse below, both parties acknowledge that all relevant information regarding the patient handoff has been communicated, and that all questions have been addressed to ensure continuity and safety of care. Additional Patient Information/Comments: Report Received From: Yvonne Green
[2025-09-28] MEDS: DEXTROSE 5%-LACTATED RINGERS 1,000 ML 75 ML IV (23:01)
[2025-09-29 01:20] VITALS: BP 167/90; PULSE 133; RESP 22; TEMP 36.8; O2SAT 97
[2025-09-29 07:37] VITALS: BP 141/71; PULSE 111; RESP 18; TEMP 36.2; O2SAT 99
--- NOTE | 2025-09-29 08:39 | INITIAL_ITS ---
Date of service: 09/29/25 Time of Service: 08:39 Care Management Initial Assmt Initial Assessment Reason for Hospitalization: Dysphagia Functional Status/Living Situation Patient Presentation: Charis was awake and lying in bed with a blank stare on her face and did not engage in conversation, written or verbal, when CM attempted to meet with her. Per report, Charis was sent to [facility] by oncology due to bleeding in her mouth. She is currently being treated for advanced squamous cell head and neck cancer, and requires a G-tube for nutrition (nutrition is consulted for recommendations .) A Palliative consult is pending for tomorrow, to discuss goals of care. Town of Residence: [place], [place] Significant Other/Family: Out of area Natural Supports: female demo coordinator Charis Goodman at [phone] mother Allyn Otero at [phone] daughter Roseann Otero at [phone] Medications Medication Management: No Issues/Barriers identified Advance Directives Advance Directives: Do you have an Advance Directive: AD On File at [facility]: N 07/04/23, 13:16 Date Asked 09/28/25 09/28/25, 16:02 AD Date Reviewed COLST On File at [facility] COLST Date Scanned Code Status Resuscitation Status DNR/DNI Portal Pt does not currently have a portal and education provided: No Portal Education: Other (Unable to review with patient) Insurance Coverage/Financial Issues Insurance: Medicare Part A & B - [id number] Medicaid of [place] - [id number] Care Team Visit Care Team Role Provider Type Sherley Keita APRN MD [facility] STAFF PHYSICIAN Michael Rainey Primary Care Provider NON-[facility] STAFF PHYSICIAN Candice Jane RDN, [facility] [place] Other Providers CEO [employer] CO FOUNDER Jordan Gaston RDN Other Providers CEO [employer] FOUNDER Michael Molina MD Emergency Provider [facility] STAFF PHYSICIAN Amandeep Enciso MD Admit Provider [facility] STAFF PHYSICIAN Attending Provider Discharge Potential Discharge Needs: PCP F/U Appt and Other Anticipated Barriers to Discharge: Medical Status Patient/Family Education Needs: Review discharge instructions, discuss Ask Me Three Plan: Palliative consult is pending for Friday. Anticipate, patient will discharge home with new home health services if needed. Patient will follow up with community providers (pcp, oncology, palliative) and continue per her discharge plan of care. CM will follow. Social Determinants of Health Screening Social Determinants of health last assessed in clinic: 09/28/25 Will the Patient Participate in the Screening?: Unable to obtain Do you worry about having a steady place to live?: no Problems where you live: no known problems In the past 12 months, have you had to go without electric, gas, oil or water in your home?: no Has lack of transportation kept you from medical appointments or from doing things needed for daily living?: no Has anyone in your life made you feel unsafe or unsupported?: no How hard is it for you to pay for the very basics like food, housing, medical care, and heating? Would you say it is:: Not hard at all Do you want help finding or keeping work or a job?: I do not need or want help If for any reason you need help with day-to-day activities such as bathing, p reparing meals, shopping, managing finances, etc., do you get the help you need?: I don?t need any help How often do you feel lonely or isolated from those around you?: Never Do you speak a language other than [place] at home?: No Does the patient want assistance with any of the above?: No PFSH All Active Problems (Updated 09/29/25 @ 13:00 by Sherley Keita APRN) Severe malnutrition (Acute) Anemia (Chronic) Pain management (Acute) ACP (advance care planning) (Acute) DNI (do not intubate) (Acute) Elevated BUN (Acute) Acute dehydration (Acute) Normocytic anemia (Acute) 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 (Acute) Medical History (Updated 09/29/25 @ 13:00 by Sherley Keita APRN) History of alcohol abuse Chronic post-traumatic stress disorder (PTSD) COPD (chronic obstructive pulmonary disease) Idiopathic progressive polyneuropathy Obesity 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 states medical marijuana Housing: house Do you feel safe at home: Yes Do you feel safe in your relationship?: Yes
--- NOTE | 2025-09-29 09:16 | PGE_ITS ---
Date of Service Date of service: 09/29/25 Time of Service: 09:16 Assessment and Plan Assessment and plan (1) Acute dehydration: Status: Acute Assessment and plan: Ongoing dry mucous memebranes, improving BUN 2L NS given in ED Pending tube feed: Will start Nutren 1.5 at 30cc/hr and increased as per protocol to goal 60cc/hr as discussed with nutrition- patient is agreeable at this time pending goal of care decision with Palliative care provider D5LR @ 75 ml/hr- stop 1- 2 hours after tube feeding if tolerated Nutrition consult -please read notes Antibiotics given in the ED- stopped -Will continue to monitor for potential bacterial infection S&S CMP in AM (2) Severe malnutrition: Status: Acute Assessment and plan: In the setting of chronic illness As above (3) Pain management: Status: Acute Assessment and plan: PRN IV morphine 1 mg Q 2H Acetaminophen 1000mg IV Q8 H Was getting oxycodone 5mg Q 6H PRN via PEG Fentanyl patch Q72H initiate (4) 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: Status: Acute Assessment and plan: Confirmed DNR/DNI status- again discussed and confirmed Palliative consultation pending - urgent CM reaching out for provider today No active bleeding in the oropharynx at this time- no hemoptysis, mouth is dry with small dry ulcerations- mouth care ordered (5) COPD (chronic obstructive pulmonary disease): Assessment and plan: Ongoing home regimen (6) 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 Gomez Subjective Subjective Patient reports: still having pain and bowel movement; denies tolerating liquids well, tolerating a regular diet, voiding w/o difficulty, diarrhea, nausea, vomiting, shortness of breath or fever Exam Narrative Exam Narrative: Slightly icteric sclera, eye well aligned- increased drainage and yellow secretions. Dry oral mucosa and tongue alert and orented X3, non-verbal, but able to grunt and unintelligible sounds , eye contact, nods and denies with head, neurologically at baseline, S1 S2 , no murmur, PPPX4 no swelling to ext. clear lungs w diminished R base, ABD with PEG tube to mid-epigastric region, n on-distended soft and nontender, no CVA tenderness Objective Last Vital Signs Temp 36.2 C L 09/29/25 07:37 Pulse 111 H 09/29/25 07:37 Resp 18 09/29/25 07:37 BP 141/71 H 09/29/25 07:37 Pulse Ox 99 09/29/25 07:37 Laboratory Results - last 24 hr 09/28/25 09/28/25 09/28/25 16:23 16:48 18:01 WBC 6.07 RBC 3.52 L Hgb 9.7 L Hct 28.4 L MCV 81 MCH 27.6 MCHC 34.2 RDW 14.0 Plt Count 120 L MPV 8.8 Immature Gran % 0.2 Neutrophils % 72.5 Lymphocytes % 12.0 Monocytes % 14.5 Eosinophils % 0.3 Basophils % 0.5 Nucleated RBC % 0.0 Absolute Neutrophils 4.40 Absolute Lymphocytes 0.73 L Absolute Monocytes 0.88 H Absolute Eosinophils 0.02 Absolute Basophils 0.03 VBG pH 7.45 H VBG pCO2 37 L VBG pO2 43 VBG HCO3 26 VBG Total CO2 24 VBG O2 Saturation 82 VBG Base Excess 2 VBG Lactate 0.9 Sodium 139 Potassium 3.6 Chloride 104 Carbon Dioxide 24.4 Anion Gap 10.6 BUN 39 H Creatinine 1.13 H Est GFR (CKD-EPI 2020) 48.59 Glucose 106 Calcium 9.0 Magnesium 1.8 Total Bilirubin 0.4 AST 20 ALT 24 Alkaline Phosphatase 106 Troponin I 4 4 Total Protein 6.9 Albumin 4.0 COVID-19 Source Nasopharynx SARS-CoV-2 (PCR) Negative Influenza Type A (PCR) Negative Influenza Type B (PCR) Negative RSV (PCR) Negative ABO/Rh A Positive Antibody Screen NEGATIVE VTE Prohylaxis Risk Level: Moderate/High Risk Contraindications: Active bleed/high bleed risk Prophylaxis: Mechanical Time Spent with Patient Time Spent with Patient: >50 minutes Time was spent: preparing to see the patient(eg.review tests), obtaining and/or reviewing separately otained hiistory, ordering medications,tests, procedures, referring, communicating with other health career development coordinator/teacher, indepentently interpreting results, counseling the patient, care coordination and other
--- NOTE | 2025-09-29 11:13 | W.NUTCONSULT ---
Date of service: 09/29/25 Time of Service: 11:13 Nutritional Consult ASSESSMENT: Charis receives 100% of her nutrition per her G-Tube. Her recommended feeding is 6 cartons daily of Nutren 1.5 daily. According to the RD at [facility], she has only been taking 2 cartons daily via bolus She is currently 175 cm and 76.6 kg. Her BMI is 24.9 kg/m2 which is WNL but she has had significant/severe weight loss depending on what time frame is evaluated. On 08/17/25 she was 86.2 kg and today 09/29/25 she is 76.6 kg. This weight change is an 11.1% weight loss in 5 weeks. She also has been consuming less than 75% of her estimated energy requirements for greater than one month. Estimated energy needs are 1900 kcal to 2300 kcal/day (25 kcal/kg/day) Estimated protein needs are 77g to 115 g/day (1.0 to 1.5 g/kg/day) Estimated fluid needs are 2200 ml/day (1 ml/kcal consumed -goal kcals) NUTRITIONAL DIAGNOSIS: Based on AND/ASPEN clinical characteristics of malnutrition, Bear meets the criteria for severe malnutrition in the context of chronic illness as evidenced by the objective parameters noted above. INTERVENTION: If consistent with goals of care, to maintain an adequate nutritional status would recommend the following enteral nutrition support: Nutren 1.5 continuous feeds at a goal rate of 60 ml/hr. Start feeding at 30 ml/hr x 4 hours. Increase rate by 15 ml q 4 hours as tolerated until goal rate is met. This regimen provides 2160 kcals/day, 98 g protein/day, and 1116 ml of free water/day. This feeding would provide 100% of her macronutrient and micronutient needs. Charis would need at least another 1000 ml of free water daily to maintain adequate hydration. MONITORING AND EVALUATION: 1. Will monitor recommendations and Charis's wishes for goals of care. 2. Will monitor her nutritional status and tolerance to feeding if it is initiated. Will monitor her nutritional status with any feeding modality of course. 3. Will adjust nutrition care plan ongoing as needed. Thank you for this nutrition consult. Time Spent in Nutritional Counseling and Treatment: 45 minutes
--- NOTE | 2025-09-29 11:25 | CHAPLAIN ---
Charis was resting in bed when I visited. She responded to a few questions by nodding her head. I explained my role and offered support. I'll continue to visit. Charis has been nonverbal with the other staff as well.
[2025-09-29 11:31] VITALS: BP 136/75; PULSE 103; RESP 17; TEMP 36.7; O2SAT 99
[2025-09-29] MEDS: MORPHine 2 MG/ML SYR 1 MG IVP (12:20)
[2025-09-29] MEDS: fentaNYL 12 MCG PATCH TD (12:21)
[2025-09-29] MEDS: DEXTROSE 5%-LACTATED RINGERS 1,000 ML 75 ML IV (12:21)
--- NOTE | 2025-09-29 12:34 | PHA.REVIEW2 ---
Pharmacy Admission Review Admission Clinical Review Admission Pharmacy Review: ACP (advance care planning) (Acute) DNI (do not intubate) (Acute) Elevated BUN (Acute) Acute dehydration (Acute) Normocytic anemia (Acute) 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 (Acute) No Known Allergies Allergy (Verified 09/28/25 17:08) Resuscitation Status DNR/DNI Height 5 ft 9 in Weight 76.6 kg Pharmacy Admission Review Renal Dosing Renal Dosing: BUN 39 mg/dL (9-23) H 09/28/25 16:23 Creatinine 1.13 mg/dL (0.55-1.02) H 09/28/25 16:23 Medications needing adjustments: Reviewed (CrCl 61.2 mL/min) List of meds needing interventions: Current medications are okay Anticoagulation Anticoagulation: Hgb 9.7 g/dL (11.2-15.7) L 09/28/25 16:23 Hct 28.4 % (36.0-46.0) L 09/28/25 16:23 Plt Count 120 10^3/uL (130-400) L 09/28/25 16:23 Creatinine 1.13 mg/dL (0.55-1.02) H 09/28/25 16:23 DVT Prophylaxis: Reviewed (SCDs) Opiate Usage Evaluate Pain Scale/Pains Meds: Reviewed (fentanyl 12mcg patch, morphine 1mg IVP q2h PRN - 5mg/24hrs, oxycodone 5mg q6h PRN - no doses given) Scheduled Bowel Reg ordered if on Opiates?: No Relevant Labs Relevant Labs: Sodium 139 mmol/L (136-145) 09/28/25 16:23 Potassium 3.6 mmol/L (3.5-5.1) 09/28/25 16:23 Chloride 104 mmol/L (98-107) 09/28/25 16:23 Magnesium 1.8 mg/dL (1.6-2.6) 09/28/25 16:23 Electrolytes, C-Reactive P, ESR: Reviewed (No new labs for today) Cardiac Review Cardiac Review: Troponin I 4 ng/L (<35) 09/28/25 18:01 Blood Pressure : Heart Rate 136/75 : 103 1131 Blood Pressure : Heart Rate 141/71 : 111 0737 Blood Pressure : Heart Rate 167/90 : 133 0120 BP, HR, EF%: Reviewed QTc Review QTc: Reviewed (no EKG on file) IV to PO Switch IV Medications: Reviewed (morphine - NG tube, per H+P patient unable to swallow) Home Meds Home Med List reviewed: Intervened Relevent Home Meds Not ordered & why?: albuterol (PRN), benzonatate (PRN), Breo Ellipta (had order for Symbicort, was discontinued by provider), ibuprofen (PRN), levalbuterol nebulizer and multivitamin Order left pending by overnight pharmacy for weekly estradiol patch, asked nurse to confirm what day of the week patient changes the patch. Per the patient they are no longer uses them. Canceled order, removed from home med list and informed provider. Current Meds Current Medication Order Review: Intervened Comments: Added 2nd PRN to alprazolam, oxycodone and prochlorperazine orders per pharmacy protocol
--- NOTE | 2025-09-29 14:19 | TELEFU_ITS ---
Date of service: 09/29/25 Time of Service: 14:19 Nutrition Note NOTE: Update to tube feeding recommendations: [employer] only has Nutren 2.0 available at this time. We can dilute the Nutren 2.0 to make a 1.5 by the following: To each bag of tube feeding make the desired volume of each bag using 3/4 Nutren 2.0 and 1/4 water. So if the desired volume to hang in the bag was 240 cc, fill the bag with 180 cc of Nutren 2.0 and 60 cc of water. With this dilution, the recommendations are the same as for Nutren 1.5. Run each bag of the Nutren 2.0/water mix at 60 cc/hr continously. She will still need additional 1000 ml daily of free water as flushes or by mouth. Time Spent in Nutritional Counseling and Treatment: 30 minutes
[2025-09-29 15:46] VITALS: BP 155/72; PULSE 107; RESP 17; TEMP 36.8; O2SAT 98
[2025-09-29 19:42] VITALS: BP 145/84; PULSE 116; RESP 17; TEMP 36.6; O2SAT 97
[2025-09-30] VITALS (7 sets, daily range): BP systolic 135–156; BP diastolic 78–85; PULSE 93–120; RESP 14–22; TEMP 36.2–36.6; O2SAT 95–98
[2025-09-30 06:30] LABS: Abs Immature Grans 0.01 10^3/uL (0.0-0.06); HCT 23.9 % (36.0-46.0); HGB 7.9 g/dL (11.2-15.7); Immature Grans % 0.5 %; MCH 27.2 pg (27.0-33.0); MCHC 33.1 % (32.0-36.0); MCV 82 fL (80-95); MPV 10.0 fL (8.0-11.0); RBC 2.90 10^6/uL (3.93-5.22); RDW 14.1 % (11.7-14.6); RDW-SD 41.3 fL; WBC 2.20 10^3/uL (4.4-10.8)
[2025-09-30 07:01] LABS: ALT 16 U/L (10-49); AST 17 U/L (<34); Albumin 3.4 g/dL (3.2-5.0); Alkaline Phosphatase 97 U/L (46-116); Anion Gap 10.9 mmol/L (3-11); BUN 21 mg/dL (9-23); Bilirubin, Total 0.3 mg/dL (0.2-1.2); CO2 24.1 mmol/L (20.0-31.0); Calcium 8.4 mg/dL (8.3-10.6); Chloride 108 mmol/L (98-107); Glucose 109 mg/dL (74-106); Magnesium 1.4 mg/dL (1.6-2.6); Potassium 3.1 mmol/L (3.5-5.1); Sodium 143 mmol/L (136-145); Total Protein 5.9 g/dL (5.7-8.2)
[2025-09-30 07:16] LABS: Platelet Count 79 10^3/uL (130-400)
--- NOTE | 2025-09-30 09:28 | PGE_ITS ---
Date of Service Date of service: 09/30/25 Time of Service: 09:29 Assessment and Plan Assessment and plan (1) Acute dehydration: Status: Acute Assessment and plan: Ongoing dry mucous memebranes, improving BUN 2L NS given in ED Pending tube feed: Will start Nutren 1.5 at 30cc/hr and increased as per protocol to goal 60cc/hr as discussed with nutrition- patient is agreeable at this time pending goal of care decision with Palliative care provider D5LR @ 75 ml/hr- stop 1- 2 hours after tube feeding if tolerated Nutrition consult -please read notes Antibiotics given in the ED- stopped -Will continue to monitor for potential bacterial infection S&S CMP in AM (2) Hypokalemia: Status: Acute Assessment and plan: Supplemented BMP in AM (3) Hypomagnesemia: Status: Acute Assessment and plan: Supplemented Magnesium in AM (4) Severe malnutrition: Status: Acute Assessment and plan: In the setting of chronic illness Nutrition consultation completed PEG: Now on tube feeding - well tolerated Trend lytes PRN As above (5) Pain management: Status: Acute Assessment and plan: PRN IV morphine 1 mg Q 2H Acetaminophen 1000 mg IV Q8 H Was getting oxycodone 5mg Q 6H PRN via PEG Fentanyl patch Q72H - effective for now - will adjust as per need and palliative recommendations (6) 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: Status: Acute Assessment and plan: Confirmed DNR/DNI status- again discussed and confirmed Palliative consultation completed : Please read notes No active bleeding in the oropharynx at this time- no hemoptysis, mouth is dry with small dry ulcerations- mouth care ordered This morning ongoing clearing of throat d/t secretions but not expectorating thus unable to assess for bleeding in the setting of worsening anemia : Ongoing Scopolamine patch oreder per palliative after discussion w patient (7) COPD (chronic obstructive pulmonary disease): Assessment and plan: Ongoing home regimen (8) Gender identity disorder in adolescents or adults: Assessment and plan: Home regimen estrogen patch- filled 08/01/25 for 90 days- stating not using -will verify w SO d/t potential adverse effect of estrogen w/d Patient stating not wanting or using - will d/c once information confirmed (9) Anxiety disorder: Assessment and plan: ongoing PRN alprazolam PEG and monitor oversedation (10) Anemia: Status: Chronic Assessment and plan: Normocytic with thrombocytopenia in the setting of cisplatin therapy and presenting complaint on admission H&H 7.9 & 23.9 from 9.7 & 28.5- remains stable today- consider bleeding from head and neck CA VS heomdilution Iron studies, folate Vit B12, guaic CBC in AM (11) Thrombocytopenia: Status: Chronic Assessment and plan: Platelets 79 from 120- as above No obvious bleeding source since on the M/S unit CBC in AM (12) Weakness: Status: Acute Assessment and plan: Worsening despite rehydration and pain control but with worsening anemia with thrombocytopenia and electrolyte imbalance PT consult OT consult (13) ACP (advance care planning): Status: Acute Assessment and plan: CM -following Palliative care consultation : Please read notes - Home with hospice VS [employer] inpatient Discussion with Scott Alvarez living partner X20 years allowed by patient: will attempt to visit , [place] and needs for 24H presence for hospice at home, also concerned about the ongoing refusal of patient to see her mother Discussed with Dr. Gomez Discharge Planning Discharge Planning: Undetermined: Friday10/03/25 probable - Subjective Subjective Patient reports: still having pain and bowel movement; denies tolerating liquids well, tolerating a regular diet, voiding w/o difficulty, diarrhea, nausea, vomiting, shortness of breath or fever Exam Narrative Exam Narrative: Slightly icteric sclera, eye well aligned- increased drainage and yellow secretions. Dry oral mucosa and tongue alert and orented X3, non-verbal, but ab le to grunt and unintelligible sounds , eye contact, nods and denies with head, neurologically at baseline, S1 S2 , no murmur, PPPX4 no swelling to ext. clear lungs w diminished R base, ABD with PEG tube to mid-epigastric region, non- distended soft and nontender, no CVA tenderness Objective Last Vital Signs Temp 36.5 C 09/30/25 07:52 Pulse 107 H 09/30/25 07:52 Resp 17 09/30/25 07:52 BP 138/78 09/30/25 07:52 Pulse Ox 98 09/30/25 07:52 Laboratory Results - last 24 hr 09/30/25 06:15 WBC 2.20 L RBC 2.90 L Hgb 7.9 L Hct 23.9 L MCV 82 MCH 27.2 MCHC 33.1 RDW 14.1 Plt Count 79 L MPV 10.0 Immature Gran % 0.5 Neutrophils % 64.9 Lymphocytes % 18.6 Monocytes % 14.1 Eosinophils % 1.4 Basophils % 0.5 Nucleated RBC % 0.0 Absolute Neutrophils 1.43 Absolute Lymphocytes 0.41 L Absolute Monocytes 0.31 Absolute Eosinophils 0.03 Absolute Basophils 0.01 RBC Morphology See Below Sodium 143 Potassium 3.1 L Chloride 108 H Carbon Dioxide 24.1 Anion Gap 10.9 BUN 21 Creatinine 0.93 Est GFR (CKD-EPI 2020) 60.84 Glucose 109 H Calcium 8.4 Magnesium 1.4 L Total Bilirubin 0.3 AST 17 ALT 16 Alkaline Phosphatase 97 Total Protein 5.9 Albumin 3.4 VTE Prohylaxis Risk Level: Moderate/High Risk Contraindications: Active bleed/high bleed risk Prophylaxis: Mechanical Time Spent with Patient Time Spent with Patient: >50 minutes Time was spent: preparing to see the patient(eg.review tests), obtaining and/or reviewing separately otained hiistory, ordering medications,tests, procedures, referring, communicating with other health healthcare applications analyst, indepentently interpreting results, counseling the patient, care coordination and other
[2025-09-30] MEDS: Normal Saline Flush 10 ML SYR IVP ×3 (10:03→21:20)
[2025-09-30] MEDS: POTASSIUM CHLORIDE 20 MEQ/100 ML BAG 50 MEQ IV INF (10:04)
[2025-09-30] MEDS: Potassium Chloride Liquid 20 MEQ PKT 40 MEQ NG (10:04)
--- NOTE | 2025-09-30 10:10 | PCNE_ITS ---
Date of service: 09/30/25 Time of Service: 10:11 History of Present Illness Narrative: I met with Devyn alone in her room at the hospital. She was lying in bed with HOB elevated. I asked if she wanted Her partner, Charis present for the visit and she declined. She does not think Charis is planning to come to the hospital today. She is nonverbal and was provided with a note pad and a pen. She did not use the note pad during the visit. She was able to shake/nod her head to answer questions. She did not answer some questions at all. She does not feel like she could undergo cancer treatment at this time. She is not planning to get back to cancer treatment. Her pain is controlled. The secretions are worse today. She would like to try scop patch. She has been doing tube feedings at home, wishes to continue for now. She has recently lost a significant amount of weight. We discussed options includin. Continue current therapies, not likely to resume cancer directed treatments. 2. , she would benefit from being on hospice for the support if she chooses this option. 3. Home on hospice- She believes her partner would take care of her. 4. Remain here in the hospital for RESIDENTIAL ADVISOR. She wants some time to think about our discussion. She wanted me to call her partner after we met. Discussion with her partner via phone. Partner of 22 years. Things were getting very difficult at home. 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 She was sleeping a lot and spending all of her time in bed. was refusing- taking anything in via tube feedings, not taking anything by mouth notes weight loss stopped taking meds for a few days before she came she indicated that she had enough the day before she came into the hospital has talked about at home Has stated she is a DNR/DNI prior to coming in here she has not let her mother visit at home She has 3 kids- in 30s-40s. 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 She wishes to remain here at the hospital through the end of life. She agrees to turn the tube feeding down and revisit tomorrow to consider stopping. She wrote a note to her sig other, Charis and asked me to read it to her over the phone. Charis was tearful on the phone. She was aware that things were moving in this direction but did not expect this to come so quickly. She plans to try to get a ride here from her neighbor tomorrow. They do not have a vehicle. Assessment and Plan Assessment and plan (1) Comfort measures only status: Status: Acute Assessment and plan: She has decided to transition to RESIDENTIAL ADVISOR and remain here at [facility] for EOL care. 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 Pain is controlled with fentanyl patch. She also has PRN IV MS ordered. She has increased respiratory secretions- scop patch ordered today. She also has robinul and atropine drops ordered. (3) Severe malnutrition: Status: Acute Assessment and plan: She has lost significant amount of weight. She was refusing tube feeds at home. She allowed for the tube feedings to be restarted at the hospital. She has not agreed to decrease and eventually d/c. (4) Pain management: Status: Acute Assessment and plan: See above. (5) Anemia: Status: Chronic Assessment and plan: worsening. (6) ACP (advance care planning): Status: Acute Assessment and plan: Transition to RESIDENTIAL ADVISOR as above. Review of Systems Narrative: Denies pain Increased secretions. PFSH All Active Problems (Updated 09/30/25 @ 18:55 by Maricruz Still NP) Comfort measures only status (Acute) Thrombocytopenia (Chronic) Weakness (Acute) Hypomagnesemia (Acute) Hypokalemia (Acute) Severe malnutrition (Acute) Anemia (Chronic) Pain management (Acute) ACP (advance care planning) (Acute) DNI (do not intubate) (Acute) Elevated BUN (Acute) Acute dehydration (Acute) Normocytic anemia (Acute) 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 (Acute) Medical History History of alcohol abuse Chronic post-traumatic stress disorder (PTSD) COPD (chronic obstructive pulmonary disease) Idiopathic progressive polyneuropathy Obesity 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 states medical marijuana Housing: house Do you feel safe at home: Yes Do you feel safe in your relationship?: Yes Exam Narrative Exam Narrative: General: chronically ill appearing, middle aged female, lying in bed with HOB elevated. Awake and alert. nonverbal. HEENT: atraumatic, EOMI, mm dry. Respiratory: + increased respiratory secretions. Extremities: moves all 4 extremities freely. Results Last Vital Signs Temp 36.5 C 09/30/25 07:52 Pulse 107 H 09/30/25 07:52 Resp 17 09/30/25 07:52 BP 138/78 09/30/25 07:52 Pulse Ox 98 09/30/25 07:52 Labs 09/30/25 12:05 09/30/25 06:15 Labs: Laboratory Results - last 24 hr 09/30/25 06:15 WBC 2.20 L RBC 2.90 L Hgb 7.9 L Hct 23.9 L MCV 82 MCH 27.2 MCHC 33.1 RDW 14.1 Plt Count 79 L MPV 10.0 Immature Gran % 0.5 Neutrophils % 64.9 Lymphocytes % 18.6 Monocytes % 14.1 Eosinophils % 1.4 Basophils % 0.5 Nucleated RBC % 0.0 Absolute Neutrophils 1.43 Absolute Lymphocytes 0.41 L Absolute Monocytes 0.31 Absolute Eosinophils 0.03 Absolute Basophils 0.01 RBC Morphology See Below Sodium 143 Potassium 3.1 L Chloride 108 H Carbon Dioxide 24.1 Anion Gap 10.9 BUN 21 Creatinine 0.93 Est GFR (CKD-EPI 2020) 60.84 Glucose 109 H Calcium 8.4 Magnesium 1.4 L Total Bilirubin 0.3 AST 17 ALT 16 Alkaline Phosphatase 97 Total Protein 5.9 Albumin 3.4 Time Spent Time Spent with Patient Time Spent(min): 155
[2025-09-30 10:23] LABS: Lab Add On Test DONE
[2025-09-30] MEDS: MAGNESIUM SULFATE 4 GM/100 ML BAG IV_INF (10:27)
[2025-09-30] MEDS: Scopolamine 1 MG/3 DAYS PATCH TD (11:44)
[2025-09-30 12:20] LABS: Abs Immature Grans 0.00 10^3/uL (0.0-0.06); HCT 23.9 % (36.0-46.0); HGB 7.9 g/dL (11.2-15.7); Immature Grans % 0.0 %; MCH 26.9 pg (27.0-33.0); MCHC 33.1 % (32.0-36.0); MCV 81 fL (80-95); MPV 10.4 fL (8.0-11.0); RBC 2.94 10^6/uL (3.93-5.22); RDW 14.3 % (11.7-14.6); RDW-SD 41.4 fL; WBC 2.09 10^3/uL (4.4-10.8)
[2025-09-30 12:36] LABS: Anisocytosis 1+; Platelet Count 77 10^3/uL (130-400)
[2025-09-30 12:37] LABS: Microcytosis 1+
[2025-09-30] MEDS: Docusate Sodium 100 MG/10 ML CUP NG ×2 (16:32→21:18)
--- NOTE | 2025-09-30 18:28 | CMPROGNOTE_ITS ---
Date of service: 09/30/25 Time of Service: 18:29 Care Management Progress Note Progress Note Text Progress Note Text: Eufemia was sitting up in bed when CM attempted to meet with her today. She did not engage with CM at all. She did not make any eye contact. She looked uncomfortable, her tongue looks so sore! Palliative care was able to meet with Eufeima today, and also to speak with Eufemia's partner, Charis. 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 Her current tube feeding rate was decreased to only 10ml/h, and will likely be discontinued tomorrow. Discharge Plan: Eufemia transitioned to comfort measures only today. She will remain at [facility] through end of life care. CM will continue to follow. Social Determinants of Health Screening Social Determinants of health last assessed in clinic: 09/28/25 Will the Patient Participate in the Screening?: Unable to obtain Do you worry about having a steady place to live?: no Problems where you live: no known problems In the past 12 months, have you had to go without electric, gas, oil or water in your home?: no Has lack of transportation kept you from medical appointments or from doing things needed for daily living?: no Has anyone in your life made you feel unsafe or unsupported?: no How hard is it for you to pay for the very basics like food, housing, medical care, and heating? Would you say it is:: Not hard at all Do you want help finding or keeping work or a job?: I do not need or want help If for any reason you need help with day-to-day activities such as bathing, preparing meals, shopping, managing finances, etc., do you get the help you need?: I don?t need any help How often do you feel lonely or isolated from those around you?: Never Do you speak a language other than Nigerien at home?: No Does the patient want assistance with any of the above?: No
[2025-09-30] MEDS: Glycopyrrolate 0.2 MG/1 ML VIAL IVP (21:18)
[2025-09-30] MEDS: ACETAMINOPHEN 1,000 MG/100 ML BAG 400 MG IVPB (21:18)
[2025-09-30] MEDS: ALPRAZolam 0.5 MG TAB NG (21:18)
[2025-09-30] MEDS: Biotene Mouthwash 237 ML BTL MM (21:19)
[2025-09-30] MEDS: MORPHine 2 MG/ML SYR IVP (22:04)
[2025-09-30 23:42] LABS: Ferritin 143 ng/mL (7-271); Folate 13.0 ng/mL (>5.38); Vitamin B12 661 pg/mL (211-911)
[2025-09-30 23:56] LABS: Iron 29 ug/dL (50-170); Total Iron Binding Capacity 234 ug/dL (250-425); Transferrin Sat 12 % (15-50)
[2025-10-01] MEDS: Biotene Mouthwash 237 ML BTL MM ×2 (09:00→21:08)
[2025-10-01] MEDS: MORPHine 2 MG/ML SYR IVP ×4 (09:35→21:08)
[2025-10-01] MEDS: Normal Saline Flush 10 ML SYR IVP ×4 (09:35→21:08)
--- NOTE | 2025-10-01 12:32 | PT.INIE ---
PT Notes Visit Reasons: Dysphagia Inpatient Physical Therapy Evaluation Date: 10/01/25 Referring Doctor: Sherley Keita PT Orders: PT CONSULT: PT consult evaluate and treat/urgent Precautions: [] Patient Profile/Admitting Diagnosis: Charis Otero is a 65 year old woman presenting September 28, sent in from oncology clinic for bleeding in her mouth. Patient has squamous cell carcinoma of the head and neck, has a PEG tube, is unable to swallow and unable to speak. September 19 diagnosis of mucositis on the soft palate. Patient minimally participating in interview, slight head movements to answer yes/no. 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 Was living with mother and girlfriend. Equipment Owned/DME: Front wheel walker Subjective: Noncommunicative. Admits she is not in any discomfort by nodding no Objective: General Observation: [] Mental Status: [] Pain: [] Vital Signs: [] ROM: Right Upper Extremity: [] Left Upper Extremity: [] Right Lower Extremity: [] Left Lower Extremity: [] Strength: Right Upper Extremity: [] Left Upper Extremity: [] Right Lower Extremity: [] Left Lower Extremity: [] Sensation: [] Bed Mobility/Transfers: [] Gait: [] Balance: [] Static Sitting: [] Dynamic Sitting: [] Static Standing: [] Dynamic Standing: [] Special Tests: Mobility Limitations Standardized Measure [facility] AM-PAC 6 clicks Basic Mobility Inpatient Short Form: Raw Score: [] Standardized Score: [] CMS Score: [] Informed Consent/Education: Patient instructed in purpose of PT consult and plan of care. Assessment: Patient is a [] year old [] referred to physical therapy services with the diagnosis of []. Patient presents with clinical signs and symptoms consistent with [], as demonstrated by the following impairment level findings: []. Impairments are contributing to the following functional limitations: AMPAC score. Patient is assessed as a [] Low 30421 [] Moderate 00386 [] High 19796 complexity based on the following: History: [] Examination: [] Presentation: [] Decision Making: [] Goals: Goals X1 week 1. Supine-Sit [] 2. Sit-Supine [] 3. Sit-Stand [] 4. Stand-Sit [] 5. Bed-Chair [] 6. Chair-Bed [] 7. Gait [] 8. Stairs [] 9. Independent with home exercise program [] 10. Balance [] Plan of Care/Treatment Plan: 1-2x/day, 7 days/week x 1 week. Plan of care has been reviewed with the FOREIGN EXCHANGE DEALER providing the service under Physical Therapy direction. Initiate Physical Therapy intervention for strengthening, bed mobility, transfers, gait, stairs, balance training, use of assistive device. DISCHARGE RECOMMENDATIONS: [] [] Home with no services [] [] Home with services [specify] [] Home with outpatient PT [] [] SNF for continued rehabilitation [] [] [facility] [] [] SNF versus LTC based on ability to participate and progress [] TREATMENT CODE/TIME: []
[2025-10-01] MEDS: Glycopyrrolate 0.2 MG/1 ML VIAL IVP (14:48)
--- NOTE | 2025-10-01 14:54 | W.PM.PROGNOT ---
Date of Service Date of service: 10/01/25 Time of Service: 14:54 Assessment and Plan Assessment and plan (1) Comfort measures only status: Status: Acute Assessment and plan: She has decided to transition to [facility] [facility] and remain here at [facility] for EOL care. 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 Pain is controlled with fentanyl patch. She also has PRN IV MS ordered. She has increased respiratory secretions- continue scopolamine She also has robinul and atropine drops ordered as needed. (3) Severe malnutrition: Status: Acute Assessment and plan: She has lost significant amount of weight. She was refusing tube feeds at home- tube was pulled out - she doesn't want it put back in - she can have clear liquids (4) Pain management: Status: Acute Assessment and plan: See above. (5) Anemia: Status: Chronic Assessment and plan: worsening. (6) ACP (advance care planning): Status: Acute Assessment and plan: Transition to [place] [place] [facility] as above. Objective Last Vital Signs Temp 36.2 C L 09/30/25 15:25 Pulse 105 H 09/30/25 22:00 Resp 14 09/30/25 22:00 BP 156/78 H 09/30/25 15:25 Pulse Ox 98 09/30/25 22:00 Laboratory Results - last 24 hr 09/30/25 12:05 Iron 29 L TIBC 234 L Transferrin % Sat 12 L Ferritin 143 Vitamin B12 661 Folate 13.0 VTE Prohylaxis Risk Level: Moderate/High Risk Contraindications: Active bleed/high bleed risk Prophylaxis: Mechanical Time Spent with Patient Time Spent with Patient: <25 minutes Time was spent: preparing to see the patient(eg.review tests), ordering medications,tests, procedures, referring, communicating with other health patient centered care specialist, counseling the patient and care coordination
[2025-10-01] MEDS: ACETAMINOPHEN 1,000 MG/100 ML BAG 400 MG IVPB (21:07)
[2025-10-02] MEDS: LORazepam 2 MG/ML VIAL IV/SC ×5 (02:02→20:53)
[2025-10-02] MEDS: ACETAMINOPHEN 1,000 MG/100 ML BAG 400 MG IVPB (04:59)
[2025-10-02] MEDS: MORPHine 2 MG/ML SYR IVP ×5 (04:59→22:24)
[2025-10-02] MEDS: Normal Saline Flush 10 ML SYR IVP ×6 (04:59→22:25)
[2025-10-02] MEDS: Biotene Mouthwash 237 ML BTL MM (08:52)
--- NOTE | 2025-10-02 13:19 | PGE_ITS ---
Date of Service Date of service: 10/02/25 Time of Service: 13:19 Assessment and Plan Assessment and plan (1) Comfort measures only status: Status: Acute Assessment and plan: Continues to state she is ready to and only wants comfort measures - she will remain here at [facility] for EOL care. Taking sips of water, jello, gingerale. 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 Pain is controlled with fentanyl patch. She also has PRN IV MS ordered. She has increased respiratory secretions- continue scopolamine She also has robinul and atropine drops ordered as needed. (3) Severe malnutrition: Status: Acute Assessment and plan: She has lost significant amount of weight. G tube removed by patient - taking oral liquids (4) Pain management: Status: Acute Assessment and plan: See above. (5) Anemia: Status: Chronic Assessment and plan: worsening. (6) ACP (advance care planning): Status: Acute Assessment and plan: Transition to DESULFURIZER HAND as above. Subjective Subjective Patient reports: no new complaints, tolerating liquids well, voiding w/o difficulty, bowel movement and afebrile; denies tolerating a regular diet, diarrhea, nausea or vomiting Interval history since last seen: Sleeping a lot, but awakens to voice. States pain is controlled. Family in to visit. She does not want her mother to come visit and see her like this; her sig other is aware and has passed this on to her mother. Exam Narrative Exam Narrative: General: Chronically ill-appearing woman in no distress HEENT: Normocephalic, atraumatic. Very dry mucous membranes, CV: Tachycardic. Regular rhythm. Portacath upper chest. Resp: CTAB Abd: soft, NTND MSK: voluntary motion x4 Neuro: awake, alert, minimally interactive Objective Last Vital Signs Temp 36.2 C L 09/30/25 15:25 Pulse 105 H 09/30/25 22:00 Resp 14 09/30/25 22:00 BP 156/78 H 09/30/25 15:25 Pulse Ox 98 09/30/25 22:00 VTE Prohylaxis Risk Level: Moderate/High Risk Contraindications: Active bleed/high bleed risk Prophylaxis: Mechanical Time Spent with Patient Time Spent with Patient: 25-34 minutes Time was spent: preparing to see the patient(eg.review tests), ordering medications,tests, procedures, referring, communicating with other health lawn care technician, indepentently interpreting results, counseling the patient and care coordination
[2025-10-02] MEDS: fentaNYL 12 MCG PATCH TD (14:06)
[2025-10-02] MEDS: Glycopyrrolate 0.2 MG/1 ML VIAL IVP ×4 (15:01→22:33)
[2025-10-03] MEDS: Normal Saline Flush 10 ML SYR IVP ×10 (02:05→19:30)
[2025-10-03] MEDS: MORPHine 2 MG/ML SYR IVP ×7 (02:05→23:03)
[2025-10-03] MEDS: Glycopyrrolate 0.2 MG/1 ML VIAL IVP ×5 (06:12→19:28)
[2025-10-03] MEDS: LORazepam 2 MG/ML VIAL IV/SC ×2 (07:49→13:36)
[2025-10-03] MEDS: Biotene Mouthwash 237 ML BTL MM (09:29)
[2025-10-03] MEDS: Scopolamine 1 MG/3 DAYS PATCH TD (11:12)
--- NOTE | 2025-10-03 14:50 | PCPN_ITS ---
Date of service: 10/03/25 Time of Service: 14:00 Assessment and Plan Assessment and plan (1) Comfort measures only status: Status: Acute Assessment and plan: Devyn will remain at [facility] anticipated thru EOL, life expectancy suspected hours to days, more likely days - urine output 575 yesterday, reduced today; some increased oral intake w/fluids, no more than 20oz; more sleeping/somnolence Devyn has been consistent w/her preferences for seemingly a long time. Avoid health care settings, do things her way, stated would want to transition to palliative style care if things got bad prior to starting treatment. preference for no artificial nutrition. 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: Status: Acute Assessment and plan: Primary: stage 3 SCC R tonsil/base tongue [id number]; HPV positive Secondary sites: adenopathy Treatment: curative; start begin Nov; tolerated around 1 mo of chem/rad; cisplatin; opted for no further treatments Surgery: potential for post ch/rd treatments Re-staging response:?per partner did feel mass was shrinking initially Followed-by: MELANIE Pfeiffer Pt preference for no further treatment - verbalized early on would opt for transition to palliative (QoL) focus if things were bad (6) ACP (advance care planning): Status: Acute Assessment and plan: reviewed w/pt awareness of curative intent, she is aware; reviewed preferences for comfort focused care and life expectancy, okay to remain at [facility] thru EOL at this time, pending any changes reviewed oncology timeline, treatment and course w/partner spent significant time reviewing and reframing partner's concerns regarding her giving up and starving herself, including self-determination, her historical preferences/decision making, zoomed out approach considering her entire QoL not just cancer or teeth or knees, etc; reviewed concerns w/MH influence of decision, unable to force Devyn to start retaking MH meds, not tolerating oral meds at this time reviewed life expectancy, w/difficulty given Devyn's age and some oral intake, etc, anticipate days, hours to days if reduced urine output/somnolence, etc spent 50m w/ACP Subjective Subjective Interval history since last seen: Devyn remains hospitalized at [facility] on comfort directed care Last seen by PC on 09/30/25, at that time decision was to transition to NURSING SPECIALIST 10/01 her FT was removed, unclear if removed by patient intentionally vs by accident Oral intake reduced to sips water, jello and gingerale Increased weakness, sleeping and pain Pain management w/IV morphine w/good effect, resting comfortably after doses Telephone call today from oncologist w/concerns of curative intent of cancer, want to ensure that patient is aware of this Initial meeting today: Devyn remains sleeping throughout, wakes at end of visit and agrees to visit w/o other members of family present; partner Charis keene full report, neighbor also in room - MH: long history of mental health w/panic, anxiety; h/o engaging w/MH therapy; has been on chronic benzos which l/t some other health issues; h/o being Rx'd venlovaxine, duloxetine, Lyrica and gabapentin; Devyn has not been consistent w/taking medications for a variety of reasons, including changing providers, Devyn's own choice, etc; she has been off her daily medications for either a week to up to a couple months; Devyn often gets overwhelmed w/HC and decision making, etc, this is not a new thing - per hospitalist med check, most MH meds not filled since December - Intake: initially reduced d/t needing all teeth removed 2/2 med ADR; FT was placed after diagnosis, she had initial difficulty finding nutrition that did not cause diarrhea, did find one that she was tolerating okay, however Devyn continued to struggle w/requiring the FT. She had had increased difficulty tolerating swallowing pills, but did not verbalize this. Her oral intake was reduced to sips to nothing more recently; weight loss of over 20lbs in recent months; secretions are being managed appropriately during this hospitalization; secretions were increased and worsening at home over the last few weeks, they have a suction machine at home but Devyn opted to not use this - partner asked Devyn yesterday about if she wanted the FT placed back in, she thought about it for a little, and ultimately opted for no; - Oncology: treatments started in August, partner aware of curative intent, does not know if Devyn knows this. 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, 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, 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 - HC engagement: after many years of being Rx'd meds PCP stopped practicing, took time/difficulty to get re-established w/new provider, more recently established with new provider, unclear of medication management; Devyn often does not want to engage w/system - ACP: never completed the AD or other paperwork; Charis has been asking Devyn if she wants to continue FT, pursuing treatment and to stay alive; each time Devyn appears to think about it, and ultimately has been consistent w/saying no or opting for less aggressive LST; Devyn has not wanted her mother to see her like this and has intermittently kicked out Charis, she does not want people to see her like this; Devyn told Charis and oncologist that she would have a low threshold for transitioning to palliative approach if it got bad, she was aware that she would get worse throughout treatment course - Devyn likes classic progressive rock music, star trek voyager and mood music at night (no piano), though lately she has been preferring quiet 2nd visit w/Devyn and hospitalist - Devyn is aware treatment was w/curative intent; she does not want feeding tube replaced, she is okay w/no IVF and would like to remain at [facility] thru EOL; Exam Narrative Exam Narrative: General: older adult F, lying in hosp bed, HOB elevated; remains sleepin g/disengaged throughout 25m visit at bedside, opens eyes at end and indicates okay to return pointing to provider and pt only; 2nd visit: eyes open 40% of time, needs re-engagement cues HEENT: normocephalic, atraumatic, dry MM, temporal wasting Resp: normal resp effort, wet cough, no audible BS at rest Psych: guarded, avoids eye contact, answers closed ended questions w/cues to re- engagement; limited to 1-3words; Objective Last Vital Signs Temp 97.2 F L 09/30/25 15:25 Pulse 105 H 09/30/25 22:00 Resp 14 09/30/25 22:00 BP 156/78 H 09/30/25 15:25 Pulse Ox 98 09/30/25 22:00
--- NOTE | 2025-10-03 17:35 | PGE_ITS ---
Date of Service Date of service: 10/03/25 Time of Service: 17:35 Assessment and Plan Assessment and plan (1) Comfort measures only status: Status: Acute Assessment and plan: Patient consistently expressed long-standing preferences to avoid healthcare settings, maintain autonomy, and prioritize quality of life. She previously stated she would transition to palliative-focused care if her condition worsened and has repeatedly declined artificial nutrition and life-prolonging interventions. These preferences have been confirmed on multiple occasions with palliative care providers. 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 Treatment intent was curative; patient began chemoradiation in August (cisplatin-based) and tolerated approximately one month before electing to discontinue further treatment. Surgical options were discussed as a potential post-treatment consideration. Initial tumor response appeared favorable. Patient is followed by oncology (, Dr. Pfeiffer). Patient has clearly and consistently declined further oncologic treatment and has reiterated preference for comfort-focused, palliative care. (3) Severe malnutrition: Status: Acute Assessment and plan: Severe malnutrition is contributing to end-of-life trajectory and anticipated cause of . Patient is unable to tolerate oral intake due to advanced stage III right tonsil/base of tongue squamous cell carcinoma. Feeding tube has been removed and patient has clearly declined artificial nutrition or IV fluids in alignment with her goals of care. (4) Pain management: Status: Acute Assessment and plan: Continue current regimen with fentanyl and IV morphine with good effect. Consider transition to CADD pump if opioid requirements increase. (5) Anemia: Status: Chronic Assessment and plan: worsening. (6) Weakness: Status: Acute Assessment and plan: Progressive weakness consistent with terminal decline. Continue comfort-focused measures. (7) Discharge planning issues: Status: Acute Assessment and plan: Will remain at [facility] for comfort-directed care through end of life. Prognosis is poor, with life expectancy estimated at hours to days, more likely days. Urine output was 575 mL yesterday and has decreased today. Oral intake remains minimal (sips of fluids only, <20 oz/day). Increasing somnolence and weakness noted. Subjective Subjective Patient reports: no new complaints, tolerating liquids well, voiding w/o difficulty, bowel movement and afebrile; denies tolerating a regular diet, flatus, diarrhea, nausea, vomiting or shortness of breath Objective Last Vital Signs Temp 36.2 C L 09/30/25 15:25 Pulse 105 H 09/30/25 22:00 Resp 14 09/30/25 22:00 BP 156/78 H 09/30/25 15:25 Pulse Ox 98 09/30/25 22:00 VTE Prohylaxis Risk Level: Moderate/High Risk Contraindications: Active bleed/high bleed risk Prophylaxis: Mechanical Time Spent with Patient Time Spent with Patient: >50 minutes Time was spent: preparing to see the patient(eg.review tests), referring, communicating with other health youth care professional, counseling the patient and care coordination
[2025-10-03] MEDS: ACETAMINOPHEN 1,000 MG/100 ML BAG 400 MG IVPB (17:36)
--- NOTE | 2025-10-03 17:36 | CMPROGNOTE_ITS ---
Date of service: 10/03/25 Time of Service: 17:36 Care Management Progress Note Progress Note Text Progress Note Text: Eufemia was sitting up in bed, visiting with her partner Charis and their neighbor, when CM met with them today. Eufemia did not really respond to CM, but Charis stated that they have been together for 22 years, and she is hoping that Eufemia is not giving up because she is depressed. Eufemia and Charis met with Palliative care for a good while today. 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 She and her partner will be supported by staff. CM will continue to follow. Social Determinants of Health Screening Social Determinants of health last assessed in clinic: 09/28/25 Will the Patient Participate in the Screening?: Unable to obtain Do you worry about having a steady place to live?: no Problems where you live: no known problems In the past 12 months, have you had to go without electric, gas, oil or water in your home?: no Has lack of transportation kept you from medical appointments or from doing things needed for daily living?: no Has anyone in your life made you feel unsafe or unsupported?: no How hard is it for you to pay for the very basics like food, housing, medical care, and heating? Would you say it is:: Not hard at all Do you want help finding or keeping work or a job?: I do not need or want help If for any reason you need help with day-to-day activities such as bathing, preparing meals, shopping, managing finances, etc., do you get the help you need?: I don?t need any help How often do you feel lonely or isolated from those around you?: Never Do you speak a language other than Turkish at home?: No Does the patient want assistance with any of the above?: No
[2025-10-04] MEDS: LORazepam 2 MG/ML VIAL IV/SC ×4 (01:28→22:32)
[2025-10-04] MEDS: MORPHine 2 MG/ML SYR IVP ×6 (01:40→22:02)
[2025-10-04] MEDS: Docusate Sodium 100 MG/10 ML CUP NG (08:40)
[2025-10-04] MEDS: Normal Saline Flush 10 ML SYR IVP ×5 (08:41→14:01)
[2025-10-04] MEDS: Atropine 1% Ophth Sol. 2 ML BTL SL (09:41)
[2025-10-04] MEDS: Glycopyrrolate 0.2 MG/1 ML VIAL IVP ×2 (13:16→20:54)
--- NOTE | 2025-10-04 15:33 | PCPN_ITS ---
Date of service: 10/04/25 Time of Service: 15:33 Assessment and Plan Assessment and plan (1) Comfort measures only status: Status: Acute Assessment and plan: Devyn will remain at [facility] anticipated thru EOL, life expectancy suspected hours to days - Please ensure the room has the comfort cart w/drinks and snacks for visitors reduced urine output, increased sleeping, increased pain/secretions, minimal oral intake Charis happy to provide some light personal care, provided w/nail care supplies today; - please provide assistance to ensure Devyn is cleaned up and receiving frequent oral care (2) Severe malnutrition: Status: Acute Assessment and plan: cause of w/o source of nutrition: unable to tolerate oral intake d/t advanced stage3 R tonsil/tongue cancer, no feeding tube, preference for no artificial nutrition or fluids continues to tolerate minimal sips of liquids and small bites of jello provide as tolerated or requested by Devyn (3) Weakness: Status: Acute (4) Pain management: Status: Acute Assessment and plan: switch to IV pump of hydrormorphone; shared decision making to start hydromorphone basal rate of 0.2mg/hr w/bolus 0.5mg q15m PRN; to increase basal rate by 0.2mg if requires 2 bolus doses over 1 hr; increase bolus rate to 1mg if basal rate reaches 1mg/hr (5) 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: Status: Acute Assessment and plan: Primary: stage 3 SCC R tonsil/base tongue [id number]; HPV positive Secondary sites: adenopathy Treatment: curative; start begin Nov; tolerated around 1 mo of chem/rad; cisplatin; opted for no further treatments Surgery: potential for post ch/rd treatments Re-staging response:?per partner did feel mass was shrinking initially Followed-by: MELANIE Pfeiffer Pt preference for no further treatment - verbalized early on would opt for transition to palliative (QoL) focus if things were bad Called [facility] and spoke w/oncology team, will share notes (6) Terminal respiratory secretions: Status: Acute Assessment and plan: continue secretion management - suction as needed and tolerated; Charis providing assistance w/suction today (7) Discharge planning issues: Status: Acute Assessment and plan: d/t home environment and current care needs it is recommended Devyn does not discharge home Devyn reported on Friday and Friday preference to remain in hospital thru EOL (8) ACP (advance care planning): Status: Acute Assessment and plan: reviewed plan for decline and notification, encouraged Charis update her phone number as soon as possible, added Gene to HIPAA w/his contact information reviewed some anticipated changes as Devyn transitions: respirations, swelling, awareness; - they may benefit from additional EOL education, however there has been a lot new education and information shared, continue education tomorrow reviewed pain management and goal of improved pain, pt consents to starting continuous IV meds for improved pain control spent 20m w/ACP Subjective Subjective Interval history since last seen: Devyn remains hospitalized at [facility] on comfort directed care Overnight she had a period of shallow breathing, decreased responsiveness and mottled skin changes. Charis and Gene are at bedside today. Charis notes that Devyn is less responsive today. Charis is happy cleaning up Devyn, washing her face, etc and Devyn seems to be content w/this per Charis. She would like to help get her nails cleaned up. Pain: she received 26mg of morphine IV yesterday over 7 different doses, so far today has received 16mg over 4 doses. the 4mg dose had been more effective yes terday, however per nursing and reports from Charis 4mg dose does not appear to be covering her pain. - Devyn agrees yes would like better pain control Devyn has received lorazepam PRN w/good effect at 1mg dose, 2 doses yesterday, and 3 doses so far today, increased d/t uncontrolled pain Secretion medications are working well. Oral intake has been limited to sips of liquid, portuguese ice, gingerale, jello; minimal Urine/bowels: urine output continues to reduce, total of 380 w/unknown spill over 24h; last BM Friday, elena Vizcaino's phone is being shut off tomorrow evening; need for plan on how to contact her if Devyn transitions, would like a phone call; would like Gene called to notify Charis; need updated HIPAA Exam Narrative Exam Narrative: General: older adult F, lying in hosp bed, HOB elevated; resting intermittently, opens eyes to engage w/Charis for sip of gingerale HEENT: normocephalic, atraumatic, dry MM, temporal wasting Resp: shallow, tachypnic, accessory muscle use, wet cough, no audible BS at rest Psych: does not engage outside of requesting sip gingerale Objective Last Vital Signs Temp 97.2 F L 09/30/25 15:25 Pulse 105 H 09/30/25 22:00 Resp 14 09/30/25 22:00 BP 156/78 H 09/30/25 15:25 Pulse Ox 98 09/30/25 22:00
--- NOTE | 2025-10-04 16:10 | CHAPLAIN ---
I checked in with Charis and her partner, Scott. Charis was quiet but responded to questions from Scott who said the nursing was working to start a pump for Charis as she's working hard at breathing. Bhavya talked about Charis's decision to be on comfort measures and not pursue any more treatments. She is accepting of Charis's decision but wondered if a feeding tube would have prolonged Charis's life. Bhavya has to go home to their place in [facility] to take care of animals and has asked nursing to call her if anything changes with Charis. 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
[2025-10-04] MEDS: HYDROmorphone 50 MG in Normal Saline 245 ML IV_INF (16:50)
--- NOTE | 2025-10-04 18:20 | CMPROGNOTE_ITS ---
Date of service: 10/04/25 Time of Service: 18:20 Care Management Progress Note Progress Note Text Progress Note Text: Eufemia remains minimally responsive to CM. Her partner, Charis, was here for a good part of the day, and met with Palliative Care again today. Eufemia was started on a dilaudid drip today. Charis is very loving and caring towards Eufemia, and is being supported by her neighbor. Discharge Plan: Eufemia is here for end of life care. She will be kept comfortable. She and her partner will be supported by staff. CM will continue to follow. Social Determinants of Health Screening Social Determinants of health last assessed in clinic: 09/28/25 Will the Patient Participate in the Screening?: Unable to obtain Do you worry about having a steady place to live?: no Problems where you live: no known problems In the past 12 months, have you had to go without electric, gas, oil or water in your home?: no Has lack of transportation kept you from medical appointments or from doing things needed for daily living?: no Has anyone in your life made you feel unsafe or unsupported?: no How hard is it for you to pay for the very basics like food, housing, medical care, and heating? Would you say it is:: Not hard at all Do you want help finding or keeping work or a job?: I do not need or want help If for any reason you need help with day-to-day activities such as bathing, preparing meals, shopping, managing finances, etc., do you get the help you need?: I don?t need any help How often do you feel lonely or isolated from those around you?: Never Do you speak a language other than Upper Sorbian at home?: No Does the patient want assistance with any of the above?: No
--- NOTE | 2025-10-04 18:45 | W.PM.PROGNOT ---
Date of Service Date of service: 10/04/25 Time of Service: 11:00 Assessment and Plan Assessment and plan (1) Comfort measures only status: Status: Acute Assessment and plan: Patient consistently expressed long-standing preferences to avoid healthcare settings, maintain autonomy, and prioritize quality of life. She previously stated she would transition to palliative-focused care if her condition worsened and has repeatedly declined artificial nutrition and life-prolonging interventions. These preferences have been confirmed on multiple occasions with palliative care providers. 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 Treatment intent was curative; patient began chemoradiation in August (cisplatin-based) and tolerated approximately one month before electing to discontinue further treatment. Surgical options were discussed as a potential post-treatment consideration. Initial tumor response appeared favorable. Patient is followed by oncology (, Dr. Pfeiffer). Patient has clearly and consistently declined further oncologic treatment and has reiterated preference for comfort-focused, palliative care. (3) Severe malnutrition: Status: Acute Assessment and plan: Severe malnutrition is contributing to end-of-life trajectory and anticipated cause of . Patient is unable to tolerate oral intake due to advanced stage III right tonsil/base of tongue squamous cell carcinoma. Feeding tube has been removed and patient has clearly declined artificial nutrition or IV fluids in alignment with her goals of care. (4) Pain management: Status: Acute Assessment and plan: Continue current regimen with fentanyl and IV morphine with moderate effect. Consider transition to CADD pump if opioid requirements increase. Will discuss with Palliative care - she is needing more boluses (5) Anemia: Status: Chronic Assessment and plan: worsening. (6) Weakness: Status: Acute Assessment and plan: Progressive weakness consistent with terminal decline. Continue comfort-focused measures. (7) Discharge planning issues: Status: Acute Assessment and plan: Will remain at [facility] for comfort-directed care through end of life. Prognosis is poor, with life expectancy estimated at hours to days, more likely days. Urine output is very little. Oral intake remains minimal (sips of fluids only, <5 oz/day). Increasing somnolence and weakness noted. 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 They voiced understanding, however do not agree with her decision. See palliative care note. Exam Narrative Exam Narrative: General: Chronically ill-appearing woman in no distress HEENT: Normocephalic, atraumatic. Very dry mucous membranes, CV: Tachycardic. Regular rhythm. Portacath upper chest. Resp: Lungs wet, lots of secretions Abd: soft, NTND MSK: voluntary motion x4 Neuro: awake, alert, minimally interactive Objective Last Vital Signs Temp 36.2 C L 09/30/25 15:25 Pulse 105 H 09/30/25 22:00 Resp 14 09/30/25 22:00 BP 156/78 H 09/30/25 15:25 Pulse Ox 98 09/30/25 22:00 VTE Prohylaxis Risk Level: Moderate/High Risk Contraindications: Active bleed/high bleed risk Prophylaxis: Mechanical Time Spent with Patient Time Spent with Patient: 25-34 minutes Time was spent: preparing to see the patient(eg.review tests), referring, communicating with other health healthcare facility administrator and care coordination
[2025-10-04] MEDS: Biotene Mouthwash 237 ML BTL MM (21:01)
[2025-10-05] MEDS: LORazepam 2 MG/ML VIAL IV/SC ×4 (00:56→22:58)
[2025-10-05] MEDS: Glycopyrrolate 0.2 MG/1 ML VIAL IVP ×2 (00:56→06:23)
[2025-10-05] MEDS: MORPHine 2 MG/ML SYR IVP ×2 (01:06→05:16)
[2025-10-05] MEDS: Atropine 1% Ophth Sol. 2 ML BTL SL ×2 (01:07→06:24)
[2025-10-05] MEDS: fentaNYL 12 MCG PATCH TD (12:53)
--- NOTE | 2025-10-05 16:25 | PGE_ITS ---
Date of Service Date of service: 10/05/25 Time of Service: 16:25 Assessment and Plan Assessment and plan (1) Comfort measures only status: Status: Acute Assessment and plan: Patient consistently expressed long-standing preferences to avoid healthcare settings, maintain autonomy, and prioritize quality of life. She previously stated she would transition to palliative-focused care if her condition worsened and has repeatedly declined artificial nutrition and life-prolonging interventions. These preferences have been confirmed on multiple occasions with palliative care providers. 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 Treatment intent was curative; patient began chemoradiation in August (cisplatin-based) and tolerated approximately one month before electing to discontinue further treatment. Surgical options were discussed as a potential post-treatment consideration. Initial tumor response appeared favorable. Patient is followed by oncology (, Dr. Pfeiffer). Patient has clearly and consistently declined further oncologic treatment and has reiterated preference for comfort-focused, palliative care. (3) Severe malnutrition: Status: Acute Assessment and plan: Severe malnutrition is contributing to end-of-life trajectory and anticipated cause of . Patient is unable to tolerate oral intake due to advanced stage III right tonsil/base of tongue squamous cell carcinoma. Feeding tube has been removed and patient has clearly declined artificial nutrition or IV fluids in alignment with her goals of care. (4) Pain management: Status: Acute Assessment and plan: Continue started on CADD pump with moderate effect. Current rate 0.4 mg/h with bolus at 0.5 mg q 15 m. Consider transition to CADD pump if opioid requirements increase. Will discuss with Palliative care - she is needing more boluses (5) Anemia: Status: Chronic Assessment and plan: not being monitored (6) Weakness: Status: Acute Assessment and plan: Progressive weakness consistent with terminal decline. Continue comfort-focused measures. (7) Discharge planning issues: Status: Acute Assessment and plan: Will remain at [facility] for comfort-directed care through end of life. Prognosis is poor, with life expectancy estimated at hours to days, more likely days. Urine output is very little. Oral intake remains minimal (sips of fluids only, <5 oz/day). Increasing somnolence and weakness noted. Subjective Subjective Patient reports: no new complaints, still having pain, pain is less and voiding w/o difficulty (hesitancy, minimal output); denies shortness of breath (does have some lung congestion) Interval history since last seen: Continues to decline; continues to express desire for COMMUNITY EDUCATION SPECIALIST Exam Narrative Exam Narrative: General: Chronically ill-appearing woman in no distress HEENT: Normocephalic, atraumatic. Very dry mucous membranes, CV: Tachycardic. Regular rhythm. Portacath upper chest. Resp: Lungs wet, lots of secretions Abd: soft, NTND MSK: voluntary motion x4 Neuro: awake, alert however mostly asleep, minimally interactive Objective Last Vital Signs Temp 36.2 C L 09/30/25 15:25 Pulse 105 H 09/30/25 22:00 Resp 14 09/30/25 22:00 BP 156/78 H 09/30/25 15:25 Pulse Ox 98 09/30/25 22:00 VTE Prohylaxis Risk Level: Moderate/High Risk Contraindications: Active bleed/high bleed risk Prophylaxis: Mechanical Time Spent with Patient Time Spent with Patient: 35-49 minutes Time was spent: preparing to see the patient(eg.review tests), ordering medications,tests, procedures, referring, communicating with other health prompt care rn, indepentently interpreting results, counseling the patient and care coordination
--- NOTE | 2025-10-05 18:00 | PDOC.CMPRO ---
Date of service: 10/05/25 Time of Service: 15:00 Care Management Progress Note Progress Note Text Progress Note Text: Eufemia appears more comfortable today. Her breathing is more easy and much less noisy. Eufemia's hydromorphone drip was titrated up around noon time. She is still mildly communicative. Her partner, Charis, was here for a good portion of the day, and is very caring and loving. Discharge Plan: Eufemia is here for end of life care. She will be kept comfortable. She and her partner will be supported by staff. CM will continue to follow. Social Determinants of Health Screening Social Determinants of health last assessed in clinic: 09/28/25 Will the Patient Participate in the Screening?: Unable to obtain Do you worry about having a steady place to live?: no Problems where you live: no known problems In the past 12 months, have you had to go without electric, gas, oil or water in your home?: no Has lack of transportation kept you from medical appointments or from doing things needed for daily living?: no Has anyone in your life made you feel unsafe or unsupported?: no How hard is it for you to pay for the very basics like food, housing, medical care, and heating? Would you say it is:: Not hard at all Do you want help finding or keeping work or a job?: I do not need or want help If for any reason you need help with day-to-day activities such as bathing, preparing meals, shopping, managing finances, etc., do you get the help you need?: I don?t need any help How often do you feel lonely or isolated from those around you?: Never Do you speak a language other than Malaysian at home?: No Does the patient want assistance with any of the above?: No
[2025-10-05] MEDS: Biotene Mouthwash 237 ML BTL MM (21:17)
[2025-10-05] MEDS: Docusate Sodium 100 MG/10 ML CUP PO (21:29)
[2025-10-05] MEDS: Normal Saline Flush 10 ML SYR IVP (22:58)
--- NOTE | 2025-10-06 09:34 | W.PM.PROGNOT ---
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 Followed by oncology (, Dr. Pfeiffer), patient declined further oncology treatment and is seeking comfort focussed treatment and as above Unable to swallow on admission with hemoptysis (3) Severe malnutrition: Status: Acute Assessment and plan: Severe malnutrition as per nutrition consult. Refusal of PEG feeding at home and inability to tolerate oral intake due to advanced stage III right tonsil/base of tongue squamous cell carcinoma. Feeding tube intiated as per patient's agreement then discontinued as patient declined artificial nutrition or IV fluids in alignment with her goals of care discussions. (4) Pain management: Start date: 10/06/25 Start time: :36 Status: Acute Assessment and plan: Ongoing CADD pump with moderate effect at 0.4 mg/h with bolus at 0.5 mg q 15 m. PRN bolus prior to Q2 hour repositioning and hygiene care (5) Anemia: Status: Chronic Assessment and plan: As per point 1 (6) Weakness: Status: Acute Assessment and plan: As per point 1 (7) Discharge planning issues: Status: Acute Assessment and plan: Anticipating end-[facility] life [facility] at 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 Discussed with Dr. Enciso Subjective Subjective Patient reports: pain is less; denies vomiting, shortness of breath or fever Exam Narrative Exam Narrative: Dry oral mucosa and tongue sleepy arousable to voice, minimal time staying alert non-verbal S1 S2 , no murmur, PPPX4, warm ext, no mottling clear lungs ABD is non-acute with PEG tube to mid-epigastric region, Objective Last Vital Signs Temp 36.2 C L 09/30/25 15:25 Pulse 105 H 09/30/25 22:00 Resp 14 09/30/25 22:00 BP 156/78 H 09/30/25 15:25 Pulse Ox 98 09/30/25 22:00 VTE Prohylaxis Risk Level: Moderate/High Risk Contraindications: Active bleed/high bleed risk Prophylaxis: Mechanical Time Spent with Patient Time Spent with Patient: >50 minutes Time was spent: preparing to see the patient(eg.review tests), obtaining and/or reviewing separately otained hiistory, ordering medications,tests, procedures, referring, communicating with other health medical care manager, indepentently interpreting results, counseling the patient, care coordination and other
--- NOTE | 2025-10-06 10:14 | PDOC.CMPRO ---
Date of service: 10/06/25 Time of Service: 10:14 Care Management Progress Note Progress Note Text Progress Note Text: Charis was lying in bed with her eyes open when CM met with her. She is admitted for end of life care and appears comfortable. She is accompanied by her partner whom is sitting at the bedside holding her hand. Chester and the hospitalist are also present. No needs are identified at this time, CM requested a hospice cart for family comfort. Discharge Anticipated Barriers to Discharge: Medical Status Patient/Family Education Needs: Review discharge instructions, discuss Ask Me Three Transportation: Private vehicle Plan: Eufemia is here for end of life care. She will be kept comfortable. She and her partner will be supported by staff. CM will continue to follow. Social Determinants of Health Screening Social Determinants of health last assessed in clinic: 09/28/25 Will the Patient Participate in the Screening?: Unable to obtain Do you worry about having a steady place to live?: no Problems where you live: no known problems In the past 12 months, have you had to go without electric, gas, oil or water in your home?: no Has lack of transportation kept you from medical appointments or from doing things needed for daily living?: no Has anyone in your life made you feel unsafe or unsupported?: no How hard is it for you to pay for the very basics like food, housing, medical care, and heating? Would you say it is:: Not hard at all Do you want help finding or keeping work or a job?: I do not need or want help If for any reason you need help with day-to-day activities such as bathing, preparing meals, shopping, managing finances, etc., do you get the help you need?: I don?t need any help How often do you feel lonely or isolated from those around you?: Never Do you speak a language other than Portuguese at home?: No Does the patient want assistance with any of the above?: No
[2025-10-06] MEDS: Scopolamine 1 MG/3 DAYS PATCH TD (11:58)
[2025-10-06] MEDS: LORazepam 2 MG/ML VIAL IV/SC ×2 (12:19→16:34)
[2025-10-06] MEDS: Glycopyrrolate 0.2 MG/1 ML VIAL IVP ×2 (12:19→16:34)
[2025-10-06] MEDS: Normal Saline Flush 10 ML SYR IVP (12:20)
--- NOTE | 2025-10-06 15:42 | CHAPLAIN ---
Charis is here on comfort measures. She seems comfortable, but less responsive today. Her partner, Scott and their friend are here again today. Scott said Charis has been holding her hand more today and embraced here when she arrived. They spend much of the day with Charis and return to home to [facility] where Scott has the [employer] and lots of animals to care for. Charis will remain here for end of life care.
[2025-10-07] MEDS: LORazepam 2 MG/ML VIAL IV/SC ×3 (03:36→08:49)
[2025-10-07] MEDS: Atropine 1% Ophth Sol. 2 ML BTL SL (03:40)
[2025-10-07 03:41] VITALS: RESP 18
[2025-10-07] MEDS: Normal Saline Flush 10 ML SYR IVP ×2 (07:07→08:50)
[2025-10-07] MEDS: Glycopyrrolate 0.2 MG/1 ML VIAL IVP (08:49)
--- NOTE | 2025-10-07 10:07 | EXPE_ITS ---
Date of service: 10/07/25 Time of Service: 09:45 Discharge Plan Disposition Patient Disposition: Discharge Details Reason For Visit: Dysphagia Admit Date/Time: 09/28/25 20:36 Admit Provider: Amandeep Enciso Attending Provider: Amandeep Enciso Primary Care Provider: [facility] Course: 65 year old woman presenting September 28, sent in from oncology clinic for bleeding in her mouth. Patient has squamous cell carcinoma of the head and neck, has a PEG tube, is unable to swallow and unable to speak. September 19 diagnosis of mucositis on the soft palate. PMH includes MTF transgender, squamous cell carcinoma of the right tonsil and tongue base on terminal make up operator cisplatin, COPD, cirrhosis. The patient was admitted to the medical surgical floor for further management. ED labs showed worsening anemia, severe mal nutrition and dehydration. The patient elected to consistently declined further chemotherapy treatment with multiple porviders including palliative care providers. The patient was transitioned to ASSOCIATE DATA SCIENTIST on 09/30/2025. Nursing observed no chest rise and no heart beat at 0925 and informed provider of her on 10/07/2025 at 0925 AM. Exam showed with no chest rise, heart beat over one minute, no corneal reflex, pupil were fixed and non-reactive; Charis Otero was pronounced at 09:35 AM on 10/07/2025 . Discuss[address] with Dr. Juarez Discharge Data Cause of : Squamous cell carcinoma of head and neck Discharge Date/Time-TO BE ENTERED AT DEPARTURE: 10/07/25 14:38 Discharge Sum: Prov Provider Consults: 09/28/25 20:39 Palliative Care Consult [CONS] Routine Consultation Status:: Follow-up needed Clarification:: Manage/follow per spec. Reason for consult:: Head/neck cancer, new DNR/DNI 09/30/25 17:51 Dog Breeder Consult [CONS] Routine Consultation Status:: Follow-up needed Clarification:: Manage/follow per spec. 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
--- NOTE | 2025-10-07 14:54 | CHAPLAIN ---
Charis about 9:30 am. SUSANNAH Roman, was with her, singing to her. Later I visited with Charis's partner Sctot, and their friend León. They were on their way to visit Charis when nursing called them and said Charis was actively dying. Scott said she had a good visit with Charis yesterday, Charis held her hand most of the day and was aware of her presence.
--- NOTE | 2025-10-07 17:49 | PDOC.CMDIS ---
Date of service: 10/07/25 Time of Service: 09:18 Care Management Discharge Plan Discharge Plan: Charis peacefully at 0924 this am. She was with staff at that time. Her partner was able to come in and spend some time with her before [place] went [place] [facility] [facility] [place]
== END 2025-10-07 14:38 | disposition expired | DRG 157 ==
LOC: ER 20:18 → MS 21:36
PROVIDERS: Admitting Provider Family Medicine; Emergency Provider Emergency Medicine; PCP Internal Medicine; Responsible Provider Nurse Practitioner Acute Care; Visit Provider Family Medicine
DX: E86.0 Dehydration (principal); K12.30 Oral mucositis (ulcerative), unspecified; E43 Unspecified severe protein-calorie malnutrition; C79.89 Secondary malignant neoplasm of other specified sites; F33.9 Major depressive disorder, recurrent, unspecified; Z66 Do not resuscitate; D69.6 Thrombocytopenia, unspecified; D64.9 Anemia, unspecified; R19.7 Diarrhea, unspecified; Z95.828 Presence of other vascular implants and grafts; R00.0 Tachycardia, unspecified; J44.9 Chronic obstructive pulmonary disease, unspecified; K74.60 Unspecified cirrhosis of liver; Z93.1 Gastrostomy status; Z79.899 Other long term (current) drug therapy; C09.8 Malignant neoplasm of overlapping sites of tonsil; C01 Malignant neoplasm of base of tongue; F10.11 Alcohol abuse, in remission; F43.12 Post-traumatic stress disorder, chronic; G60.3 Idiopathic progressive neuropathy; M54.50 Low back pain, unspecified; F64.0 Transsexualism; Z51.5 Encounter for palliative care; Z68.24 Body mass index [BMI] 24.0-24.9, adult; F41.9 Anxiety disorder, unspecified; G89.3 Neoplasm related pain (acute) (chronic); R53.1 Weakness
CPT/HCPCS: 00123; 36415; 36416; 80053; 82805; 82962; 86850; 86900; 86901; 87637; 96365; 96366; 96368; 96375; 99285; 71045; 82607; 82728; 82746; 83540; 83550; 83605; 83735; 84100; 84484; 85025; 99222; 99231; 99232; 99233; J0131; J0692; J1171; J1596; J2060; J2270; J3373; J3475; J3480